=== PATIENT | male | born 1995 | race Caucasian/White ===

== ENCOUNTER 2016-11-29 06:39 | Emergency (ER) | payer SELFPAY ==
[2016-11-29] MEDS ORDERED: NS 0.9% 1000 ML* 1,000 ML IV SCH (07:45)
[2016-11-29] MEDS ORDERED: NS 0.9% 1000 ML* 2,000 ML IV ONE (07:49)
[2016-11-29 08:18] LABS: Hematocrit 43 % (42-52); Hemoglobin 14.3 g/dl (14.0-18.0); Mean Corpuscular HGB Conc 34 g/dl (31-36); Mean Corpuscular Hemoglobin 28 pg (27-31); Mean Corpuscular Volume 84 fL (80-94); Mean Platelet Volume 8 um3 (7.4-10.4); Red Blood Count 5.05 10^6/ul (4.0-5.4); Red Cell Distribution Width 14 % (10.5-15)
[2016-11-29 08:30] LABS: ALT 13 U/L (7-52); AST 23 U/L (13-39); Albumin 3.6 g/dL (3.2-5.2); Alkaline Phosphatase 47 U/L (34-104); Anion Gap 5 mmol/L (2-11); BUN/Creatinine Ratio 17.8 (8-20); Blood Urea Nitrogen 16 mg/dL (6-24); CO2 Carbon Dioxide 27 mmol/L (22-32); Calcium 8.6 mg/dL (8.6-10.3); Chloride 108 mmol/L (101-111); EGFR Non-African American 106.5 (>60); Globulin 2.5 g/dL (2-4); Glucose 104 mg/dL (70-100); Magnesium 2.1 mg/dL (1.9-2.7); Potassium 3.6 mmol/L (3.5-5.0); Sodium 140 mmol/L (133-145); Total Protein 6.1 g/dL (6.4-8.9)
[2016-11-29 08:38] LABS: Acetaminophen < 15 mcg/mL; Alcohol < 10 mg/dL (<10)
[2016-11-29] MEDS ORDERED: Iohexol 300* (CONTRAST) 10 ML SDV IV ONE (08:45)
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
[2016-11-29] MEDS ORDERED: Amoxicillin/Clavulanate TAB* 875 MG PO ONE (10:53)
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
[2016-11-29 11:45] VITALS: BP 117/58
== END 2016-11-29 11:53 | disposition home or self-care (01) ==
LOC: ED 06:39
DX: S00.83XA Contusion of other part of head, initial encounter (principal); S09.90XA Unspecified injury of head, initial encounter; M54.2 Cervicalgia; S20.219A Contusion of unspecified front wall of thorax, initial encounter; J32.9 Chronic sinusitis, unspecified; Y04.0XXA Assault by unarmed brawl or fight, initial encounter; Y92.9 Unspecified place or not applicable; Y00.XXXA Assault by blunt object, initial encounter; Z72.0 Tobacco use
CPT/HCPCS: 36415; 70450; 70486; 71260; 72125; 74177; 80053; 80320; 80329; 83605; 83735; 84484; 85025; 85610; 85730; 86140; 96360; 96374; 99283; A9270-GY; G0480; Q9967

== ENCOUNTER 2016-12-18 04:03 | Inpatient (IN) | payer SELFPAY ==
[2016-12-18] MEDS ORDERED: Ondansetron INJ* 2 MG/ML VIAL IV ONE (05:08)
[2016-12-18] MEDS ORDERED: HYDROmorphone INJ* 1 MG/ML CARPUJECT SYRINGE IV SLOW PU ONE (05:08)
[2016-12-18] MEDS ORDERED: NS 0.9% 1000 ML* 1,000 ML IV ONE (05:08)
[2016-12-18] MEDS ORDERED: LORazepam INJ* 2 MG/ML 1 ML VIAL IV PUSH ONE (05:08)
[2016-12-18 07:01] LABS: Hematocrit 44 % (42-52); Mean Corpuscular HGB Conc 34 g/dl (31-36); Mean Corpuscular Hemoglobin 28 pg (27-31); Mean Corpuscular Volume 83 fL (80-94); Mean Platelet Volume 9 um3 (7.4-10.4); Red Blood Count 5.35 10^6/ul (4.0-5.4); Red Cell Distribution Width 14 % (10.5-15); White Blood Count 11.8 10^3/ul (3.5-10.8)
--- NOTE | 2016-12-18 07:02 | ED ---
Cyndie Girard Rebecca, scribed for Cecile Zhao MD on 12/18/16 at 0455 . Skin Complaint - HPI Summary HPI Summary: Pt is a 21 y/o M who presents to ED c/o erythema of the L breast. Yesterday, the pt reports there was a small "pimple" at the top of the L breast, then upon waking up this morning he began experiencing severe pain and erythema that is spreading to the L axillary region. Pain is currently ranked 8/10 and aggravated by palpation, alleviated by nothing. Additionally c/o anxiety. Denies fever. No PMHx abscess though he notes a cyst in the inguinal region that was removed last year. - History of Current Complaint Chief Complaint: EDRashSkinAbscess Time Seen by Provider: 12/18/16 04:19 Stated Complaint: INFECTION LEFT BREAST AREA Hx Obtained From: Patient Onset/Duration: Started Days Ago - yesterday, Still Present Current Severity: Severe Pain Intensity: 8 Pain Scale Used: 0-10 Numeric Skin Location: Other: - L breast, spreading to the L axilla Character: Pain, Redness Aggravating Symptom(s): Touch Alleviating Symptom(s): Nothing - Allergy/Home Medications Allergies/Adverse Reactions: Allergies Allergy/AdvReac Type Severity Reaction Status Date / Time No Known Allergies Allergy Verified 11/29/16 06:53 PMH/Surg Hx/FS Hx/Imm Hx Endocrine/Hematology History: Denies: Hx Anticoagulant Therapy, Hx Diabetes, Hx Thyroid Disease Cardiovascular History: Denies: Hx Hypertension, Hx Pacemaker/ICD Respiratory History: Reports: Hx Asthma Denies: Hx Chronic Obstructive Pulmonary Disease (COPD) History: Denies: Hx Renal Disease Neurological History: Denies: Hx Dementia, Hx Seizures Psychiatric History: Reports: Hx Anxiety Denies: Hx Substance Abuse - Surgical History Surgery Procedure, Year, and Place: tonsillectomy and adenoidectomy 6 years ago Infectious Disease History: No Infectious Disease History: Denies: Hx Hepatitis, Hx Human Immunodeficiency Virus (HIV), Traveled Outside the [place] in Last 30 Days - Family History Known Family History: Positive: Other - FHx anxiety Negative: Cardiac Disease, Hypertension, Diabetes - Social History Alcohol Use: None Hx Substance Use: Yes Substance Use Type: Reports: Marijuana Hx Tobacco Use: Yes Smoking Status (MU): Heavy Every Day Tobacco Smoker Review of Systems Negative: Fever Positive: Other - Erythema and pain around the L breast Positive: Anxious All Other Systems Reviewed And Are Negative: Yes Physical Exam - Summary Physical Exam Summary: General: Well appearing, no pain distress Skin: Warm, Dry, the left breast is erythematous, fluctuant and has induration Eyes: EOMI, IHSAN ENT: Pharynx normal, TMs normal Neck: Supple, nontender Respiratory: CTA, breath sounds present, no rhonchi, no wheezes, no rales Cardiovascular: RRR, no murmur, no rub, no gallop Abdomen: Soft, nontender, Non-distended, no guarding, no rebound Bowel: Present Musculoskeletal: VI, No edema Neuro: Sensory/motor intact, A&Ox3, CN intact 2-12 Psych: Affect/mood appropriate Triage Information Reviewed: Yes Vital Signs On Initial Exam: Initial Vitals Temp Pulse Resp BP Pulse Ox 98.7 F 105 18 137/81 97 12/18/16 04:08 12/18/16 04:08 12/18/16 04:08 12/18/16 04:08 12/18/16 04:08 Vital Signs Reviewed: Yes Diagnostics - Vital Signs Vital Signs Temp Pulse Resp BP Pulse Ox 12/18/16 04:08 98.7 F 105 18 137/81 97 - Laboratory Lab Statement: Any lab studies that have been ordered have been reviewed, and results considered in the medical decision making process. Course/Dx - Course Course Of Treatment: 21 yo male with breast abscess on the left, he is awaiting labs,ultrasound and and Iand D of the breast which will be done by the am attending. - Diagnoses Provider Diagnoses: Abscess Discharge - Discharge Plan Condition: Stable Disposition: OTHER Discharge Disposition Comment: Pt will be signed out, pending dispo, awaiting drainage. Referrals: Pawan Cole MD [Primary Care Provider] - The documentation as recorded by the Cyndie york Rebecca accurately reflects the service I personally performed and the decisions made by me, Cecile Zhao MD.
[2016-12-18 07:13] LABS: Albumin 4.1 g/dL (3.2-5.2); BUN/Creatinine Ratio 14.3 (8-20); C Reactive Protein 80.09 mg/L (< 5.00); Calcium 9.1 mg/dL (8.6-10.3); EGFR African American 124.2 (>60); EGFR Non-African American 96.6 (>60); Globulin 3.1 g/dL (2-4); Total Bilirubin 0.4 mg/dL (0.2-1.0); Total Protein 7.2 g/dL (6.4-8.9)
[2016-12-18 07:26] LABS: Comments Flag Yes
[2016-12-18] MEDS ORDERED: fentaNYL* 50 MCG/ML 2 ML VIAL (100 MCG VIAL) IV SLOW PU ONE (07:47)
[2016-12-18] MEDS ORDERED: fentaNYL* 50 MCG/ML 2 ML VIAL (100 MCG VIAL) ONE (07:48)
--- NOTE | 2016-12-18 08:31 | RAD ---
INDICATION: Left breast abscess COMPARISON: None TECHNIQUE: Radial and antiradial scans of the breast were performed using grayscale and color Doppler imaging. FINDINGS: In the retroareolar left breast there is significant edematous change with a localized hypoechoic collection which is likely an organizing abscess. This area measures approximately 2.4 x 1.3 cm and is associated with peripheral hyperemic response. Suggest clinical evaluation and management and follow-up ultrasonography in 1 month to document resolution of findings. IMPRESSION: SUSPECT DEVELOPING RETROAREOLAR LEFT BREAST ABSCESS. RECOMMEND FOLLOW-UP IMAGING TO DOCUMENT RESOLUTION. ASSESSMENT: ACR BIRADS Category 3: Probably Benign
[2016-12-18] MEDS ORDERED: Bupivacaine 0.5% SDV PF* 30 ML VIAL ONE (09:27)
[2016-12-18] MEDS ORDERED: Lidocaine 1% INJ* 10 MG/ML 30 ML SDV ONE (09:27)
[2016-12-18] MEDS ORDERED: ceFAZolin 2 GM PREMIX (*) 50 ML IVPB ONE (09:41)
--- NOTE | 2016-12-18 10:22 | HP ---
CC: Dr. Abraham, [facility] ADMISSION HISTORY AND PHYSICAL: DATE OF ADMISSION: 12/18/16 This patient was evaluated in the [facility] Emergency Room on Wednesday , 12/18/16. ATTENDING PHYSICIAN: Austin Abraham MD* (dictated by Megan Perez NP). CHIEF COMPLAINT: Left breast abscess. HISTORY OF PRESENT ILLNESS: The patient is a 21-year-old male who presented to the emergency department at 3 o'clock this morning, complaining of erythema of the left breast. Yesterday, the patient reports, there was a small "pimple" at the top of the left breast and then upon awakening this morning, he began experiencing severe pain and spreading erythema. The pain is currently ranked at 8/10 and aggravated by palpation. He denies any fever or chills. He denies any previous breast abscesses, though he notes he had removal of a cyst in the inguinal region within the past year. Ultrasound of the left breast revealed a developing left breast abscess in the retroareolar region, measuring 2.4 x 1.3 cm. The patient's white blood cell count is 11.8 and he is afebrile. PAST MEDICAL HISTORY: Generally healthy. No acute or chronic conditions. PAST SURGICAL HISTORY: Tonsillectomy and adenoidectomy 6 years ago and excision of groin cyst in 2016. MEDICATIONS: None currently. ALLERGIES: No known drug allergies. FAMILY HISTORY: Negative for cardiac disease or diabetes or bleeding tendencies or clotting disorders or anesthesia complications. SOCIAL HISTORY: He is a smoker. He denies the use of substances. His significant other is accompanying him in the emergency room. REVIEW OF SYSTEMS: Denies fever or chills or excessive fatigue. Endocrine: Denies diabetes or thyroid disease. Cardiovascular: Denies hypertension or anginal chest pain or palpitations. Respiratory: Reports smoking. No current dyspnea. Gastrointestinal: Denies nausea, vomiting, diarrhea, or constipation. Genitourinary: Denies history of renal disease. Denies dysuria. Neurologic: Denies history of seizures. Psychiatric: Denies substance abuse and reports history of anxiety. PHYSICAL EXAMINATION GENERAL SURVEY: The patient is a 21-year-old male, well developed, well nourished, in no acute distress. VITAL SIGNS: Temperature 98.7, blood pressure 106/52, pulse 80s and regular, respiratory rate 18, pulse oximetry 97%. SKIN: Warm, dry, and intact, except for left breast, which has an area of erythema, approximately 10 cm wide and there is a small area that is eroding through the skin. The left breast is exquisitely tender to palpation. No axillary lymphadenopathy. HEENT: Benign. NECK: Supple. No cervical lymphadenopathy. LUNGS: Breath sounds bilaterally clear and equal. HEART: Regular rate and rhythm. No murmurs or rubs appreciated. ABDOMEN: Soft and nondistended. No obvious masses. No groin masses. GENITALIA/RECTAL: Deferred. EXTREMITIES: Warm without edema or skin ulceration. NEUROLOGIC: Alert when aroused, currently is medicated with analgesic and is sleepy. IMPRESSION: Left breast abscess. PLAN: As discussed with Dr. Abraham, the patient will be taken to the operating room today for incision and drainage of left breast abscess. He will have intravenous fluids, intravenous antibiotics, and pain management, and further planning per Dr. Abraham. TIME SPENT: Sixty minutes, with greater than 50% in [id number] history taking and coordination of care. PRADIP PEREZ NP [id number]/[facility] #: [id number] ELLA
[2016-12-18] MEDS ORDERED: Propofol* 10 MG/ML 20 ML BTL IV PUSH ONE (10:23)
[2016-12-18] MEDS ORDERED: Metoclopramide IV* 5 MG/ML 2 ML VIAL ONE (10:23)
[2016-12-18] MEDS ORDERED: Ketorolac INJ* 30 MG/ML 1 ML VIAL IV PRN (10:30)
[2016-12-18] MEDS ORDERED: HYDROmorphone INJ* 1 MG/ML CARPUJECT SYRINGE IV PRN (10:30)
[2016-12-18] MEDS ORDERED: DiMENhydriNATE IV* 50 MG/ML VIAL IV PUSH PRN (10:30)
[2016-12-18] MEDS ORDERED: Ketorolac INJ* 30 MG/ML 1 ML VIAL ONE (10:45)
[2016-12-18] MEDS ORDERED: oxyCODONE/Acetamin 5/325 MG* TAB PO PRN (10:47)
[2016-12-18] MEDS ORDERED: Ondansetron INJ* 2 MG/ML VIAL IV PRN (10:47)
--- NOTE | 2016-12-18 10:55 | SURGPN ---
Brief Operative Note - Surgery Procedures: Procedures OPERATIVE REPORT PRE-OP: Left Breast abscess POST-OP: Same PROCEDURE: Incision and drainage of left breast abscess SURGEON: MD Jraad ANESTHESIA: General with Local Dr. Nye ASST: none IVF: min EBL:min SPECIMEN: Fluid for gram stain and culture DRAIN: 1/2" Nu-gauze packing WOUND CLASS: 4 COMPLICATIONS: none TO PACU
[2016-12-18] MEDS ORDERED: HYDROmorphone INJ* 1 MG/ML CARPUJECT SYRINGE ONE (11:00)
[2016-12-18] MEDS: NS 0.9% 1000 ML* 1,000 ML IV SCH ×2 (13:30→22:39)
[2016-12-18] MEDS ORDERED: ZOSYN 3.375 GM x ONE DOSE over 30 miuntes IVPB ×2 (13:30)
[2016-12-18] MEDS: oxyCODONE/Acetamin 5/325 MG* TAB PO PRN ×3 (13:55→22:22)
[2016-12-18] MEDS ORDERED: Vancomycin(*) 1,000 MG in NS 0.9% 250 ML* 250 ML IVPB ONE (14:00)
[2016-12-18] MEDS ORDERED: Vancomycin per Pharmacy* NOTE FOLLOW UP PRN (14:02)
[2016-12-18] MEDS ORDERED: Mouth Piece, Nicotine* 1 EACH CARTRIDGE ONE (14:09)
[2016-12-18] MEDS: Nicotine Inhaler* 10 MG AMP INH PRN ×3 (14:11→21:40)
[2016-12-18] MEDS ORDERED: Mouth Piece, Nicotine* 1 EACH CARTRIDGE INH ONE (15:00)
[2016-12-18] MEDS: Nicotine PATCH 21 MG/24 HR* PATCH TRANSDERM SCH (16:07)
--- NOTE | 2016-12-18 18:27 | ED ---
IEriberto Angela, scribed for Ruben Rodriguez MD on 12/18/16 at 0720 . Progress - Progress Note Progress Note: Pt is a 21 y/o M who presents to ED c/o erythema of the L breast. Yesterday, the pt reports there was a small "pimple" at the top of the L breast, then upon waking up this morning he began experiencing severe pain and erythema that is spreading to the L axillary region. This pt was signed out from Dr. Zhao, pending disposition, awaiting breast US. Pt will be admitted to [facility] in stable condition with a diagnosis of abscess. - Results/Orders Results/Orders: Left Breast US IMPRESSION: Suspect developing retroareolar left breast abscess. Recommend follow-up imaging to document resolution. Assessment: ACR BIRADS category 3: probably benign ED physician has reviewed this radiology report and agrees. Re-Evaluation - Re-Evaluation First Eval Re-Evaluation Time: 07:50 Comment: On examination, left breast is warm to palpation. There is tenderness and erythema on the left breast. Course/Dx - Course Course Of Treatment: Pt is a 21 y/o M who presents to ED c/o erythema of the L breast. Yesterday, the pt reports there was a small "pimple" at the top of the L breast, then upon waking up this morning he began experiencing severe pain and erythema that is spreading to the L axillary region. This pt was signed out from Dr. Zhao, pending disposition, awaiting breast US. US reveals suspect developing retroareolar left breast abscess. Recommend follow-up imaging to document resolution. I discussed the case with Dr. Cruz, who accepted the pt to his services for I&D of abscess in the OR. Pt is hemodynamically stable, alert and oriented x3. - Diagnoses Provider Diagnoses: Abscess - Provider Notifications Discussed Care Of Patient With: Georges Dial Time Discussed With Above Provider: 08:27 Instructed by Provider To: Other - I discussed the pt's case with Dr. Dial. He will come see the pt in the ED. I spoke to Dr. Cruz, who accepted the pt for admission for I&D in the OR. The documentation as recorded by the Eriberto york Angela accurately reflects the service I personally performed and the decisions made by me, Ruben Rodriguez MD.
[2016-12-18] MEDS: clonazePAM TAB(*) 1 MG PO PRN (19:21)
[2016-12-18] MEDS: Ketorolac INJ* 30 MG/ML 1 ML VIAL IV PUSH PRN (19:24)
[2016-12-18] MEDS: HYDROmorphone INJ* 1 MG/ML CARPUJECT SYRINGE IV SLOW PU PRN ×3 (19:45→22:49)
[2016-12-18] MEDS ORDERED: Vancomycin(*) 1,000 MG in NS 0.9% 250 ML* 250 ML IVPB SCH (21:00)
[2016-12-18] MEDS ORDERED: Nicotine Patch Removal NOTE PATCH OFF SCH (21:00)
--- NOTE | 2016-12-18 23:58 | OP ---
DATE OF OPERATION: 12/18/16 - ROOM #337 DATE OF : 89 SURGEON: Austin Abraham MD ENVIRONMENTAL HEALTH TECHNICIAN: None. ANESTHESIOLOGIST: Dr. Nye. ANESTHESIA: General with local. PRE-OP DIAGNOSIS: Left breast abscess. POST-OP DIAGNOSIS: Left breast abscess. OPERATIVE PROCEDURE: Incision and drainage of left breast abscess. ESTIMATED BLOOD LOSS: Minimal. IV FLUIDS: Minimal. SPECIMENS: Fluid for gram stain and culture. WOUND CLASSIFICATION: IV. DRAIN: One-half inch Nu Gauze packing. COMPLICATIONS: None. FINDINGS: Patient had a spontaneously draining left breast abscess with significant amount of induration, edema and cellulitis. The abscess cavity was opened. The cultures were obtained and all tissue appeared to be viable and any of the loculations were broken up. The wound was packed and covered with dry gauze. BRIEF HISTORY: Mr. Pawan Chávez is a 21-year-old gentleman presenting to the emergency room with 24 hours of swelling, tenderness, and redness in the left breast. He said he had a small pimple above the areola yesterday and has suddenly developed significant amount of pain and discomfort. It is noted to have an area about 10 x 10 cm of cellulitis with induration and swelling of the left breast. Also noted to be some enlarged tender lymph nodes in the left axilla, not clinically fluctuant or abscessed. There was an open area inferior and slightly lateral to the areola with some seropurulent drainage noted. Ultrasound does show what appeared to be a retroareolar cavity consistent or concerning for an early abscess. Surgical consultation has been obtained and after being seen and examined, he is to be taken to the operating for an incision and drainage of what appears to be a left breast abscess. He is non-diabetic, but he is a smoker. He denies recent trauma or manipulation of the breast. The procedure was discussed with the patient, the risks, but not limited to bleeding, infection, abscess formation, discomfort, hospital stay, re-operation depending on clinical course, and prolonged wound care and healing were all explained. DESCRIPTION OF PROCEDURE: Written informed consent was obtained, the left breast was marked with indelible ink and preoperative antibiotics were administered. The patient was taken to the operating room and placed in the supine position. Sequential decompression devices and warming blanket were applied. Anesthesia was administered. The left breast and chest as well the axilla were prepped and draped in usual sterile fashion. Timeout verification was completed. Initially, 0.5% plain Marcaine was infiltrated extensively in the left breast. A elliptical incision of skin bordering the inferior portion of the left areola to include the open area was excised. We then entered a rather large cavity went in behind the nipple as well as several pockets extending deeper down towards the chest wall and medial. All of these were broken up. There was some turbid seropurulent fluid drained, but no general abscess, no large abscess , which I had sized or entered. After using a #18 gauge needle to aspirate several areas of induration, there was no evidence of pus elsewhere in the breast. I irrigated extensively and cultures were taken prior to irrigation. Attention was turned to the axilla. There appeared to be several enlarged lymph nodes, did not appear to be fluctuant, slightly red, but I suspect that these were reactive to the process in the breast and I did not perform aspiration or attempt to open these areas. The abscess cavity was packed with one half-inch Nu Gauze covered with a dry sterile dressing. The patient tolerated the procedure well, was taken to the recovery room in stable condition. [id number]/[facility] #: [id number] ELLA
[2016-12-19] MEDS: Nicotine Inhaler* 10 MG AMP INH PRN ×2 (00:27→11:41)
[2016-12-19] MEDS: Ketorolac INJ* 30 MG/ML 1 ML VIAL IV PUSH PRN ×2 (01:50→10:51)
[2016-12-19] MEDS: HYDROmorphone INJ* 1 MG/ML CARPUJECT SYRINGE IV SLOW PU PRN ×10 (02:05→18:23)
[2016-12-19] MEDS: oxyCODONE/Acetamin 5/325 MG* TAB PO PRN ×2 (02:48→07:33)
[2016-12-19] MEDS: clonazePAM TAB(*) 1 MG PO PRN (08:38)
--- NOTE | 2016-12-19 08:52 | PN ---
Progress Note - Progress Note Date of Service: 12/19/16 SOAP: Subjective: c/o severe pain and also swelling in L axilla which is tender. "I have another abscess." He also requests more Klonapin for his anxiety. Objective: Vital Signs Temp 98.2 F 12/19/16 00:06 Pulse 80 12/19/16 00:06 Resp 20 12/19/16 08:38 BP 128/62 12/19/16 00:06 Pulse Ox 96 12/19/16 08:23 Sleeping, arousable. L chest wound clean; portion of packing removed then pt refused. Erythema on breast with tenderness. Not fluctuant. L axilla has 2 tender subcut nodules; non-fluctuant. Intake & Output 12/18/16 12/19/16 12/19/16 18:59 06:59 18:59 Intake Total 3328 3420 Output Total 380 Balance 3328 3040 Weight 197 lb Intake: IV Fluids 2278 950 LR 200 NS 50ML, Cefazolin 2G 50 IVPB 370 110 Oral 680 2360 Output: Urine 380 Micro reviewed: +MSSA in blood and wound. Assessment: POD#1 s/p I&D of L breast infxn with bacteremia. He does not appear septic. Plan: Will continue abx. Have asked Hospitalist for help in management of infxn; anxiety meds.
[2016-12-19] MEDS: Nicotine PATCH 21 MG/24 HR* PATCH TRANSDERM SCH ×2 (10:25→17:41)
[2016-12-19] MEDS: oxyCODONE TAB* 5 MG TAB PO PRN ×2 (11:40→16:16)
[2016-12-19] MEDS ORDERED: clonazePAM TAB(*) 1 MG PO PRN (12:33)
[2016-12-19] MEDS ORDERED: ceFAZolin 2 GM PREMIX (*) 100 ML IVPB SCH (13:00)
[2016-12-19] MEDS ORDERED: Vancomycin Trough Check NOTE FOLLOW UP ONE (15:00)
--- NOTE | 2016-12-19 15:01 | RAD ---
INDICATION: Chest wall abscess COMPARISON: Left chest wall sonogram December 18, 2016 TECHNIQUE: PA and lateral dual-energy views were obtained. FINDINGS: Bones/Soft Tissues: There are no acute bony findings. The lateral view shows soft tissue edema in the chest wall consistent with earlier ultrasound findings Cardiomediastinal: The cardiomediastinal silhouette is normal. Lungs: There are no infiltrates. Pleura: There are no pleural effusions. Other: None IMPRESSION: LUNGS CLEAR. SOFT TISSUE ABNORMALITIES IN THIS PATIENT WITH KNOWN CHEST WALL ABSCESS..
--- NOTE | 2016-12-19 15:02 | CONS ---
CC: Dr. Dial; Dr. Abraham; True. * CONSULTATION REPORT: DATE OF CONSULT: 12/19/16 REQUESTING PHYSICIAN FOR CONSULT: Dr. Dial MY ATTENDING PHYSICIAN WHILE IN THE HOSPITAL: Sushila Forrest DO. (Report dictated by Jorgito Jenkins NP). REASON FOR MEDICAL CONSULTATION: Evaluation of breast abscess and medical management and bacteremia. HISTORY OF PRESENT ILLNESS: I refer to the H and P dictated by Dr. Toya Perez earlier on the for further details. In short, Mr. Chávez is a 21-year- old male patient, who came into the ER with complaints of left breast abscess. He says that he was 36 hours prior was in half-way. He developed a pimple over his left breast that got much worse. He noticed that it got much bigger when woke up the following morning yesterday and there was spreading erythema up into his arm. He said the pain was an 8/10. He denied any fevers or chills. He says that he did have cyst in his inguinal area in the past year. The ultrasound of the breast revealed a large left abscess. He denied having any chest pain, no cough, no shortness of breath. He was taken to the OR by Dr. Abraham. An I and D was performed and blood cultures were sent. Today it was noted that he appeared to have staph in his blood. In addition to this, there was staph growing out of the abscess. Because of this, we were asked to evaluate in consult. He says he was in a significant amount of pain right now. He says he feels very anxious. He denies any chest pain, denies having any shortness of breath and he denies any nausea and denies having any vomiting, but because of his medical complexity, we are asked to evaluate and consult. PAST MEDICAL HISTORY: Significant for anxiety. PAST SURGICAL HISTORY: 1. He has had a tonsil and adenoidectomy. 2. He has had an excision of the cyst of his right groin. HOME MEDICATIONS: Denied. ALLERGIES TO MEDICATIONS: Include no known drug allergies. FAMILY HISTORY: Mother had a history of cancer. Father had a history of diabetes and heart disease. SOCIAL HISTORY: He is a pack a day smoker for about 10 years. He does smoke marijuana daily. He denies alcohol abuse and he specifically denied IV drug use , but does state that he has used cocaine in the past, but he says he has not done injectables. REVIEW OF SYSTEMS: There is no documented fever. He denied having any significant weight change. There was no double vision. He denies having any ear discharge. No rhinorrhea. No sore throat. No thyroid enlargement. Denies having any chest pain or shortness of breath. No abdominal pain. No nausea, no vomiting, no dysuria, no frequency. There was no seizure. No loss of consciousness. No pruritus and no skin ulceration. Review of 14 systems completed, all others negative. PHYSICAL EXAM: Revealed vital signs, blood pressure 128/62, pulse 80, respirations 18, O2 sat 99%, temperature 98.2. General: At this time, Mr. Chávez is a 21- year-old male patient. He appears to be again anxious. He is well nourished, well developed. HEENT: Head is atraumatic. Eyes: EOMs are intact. Sclerae was anicteric, not pale. Neck: Supple. Throat: Oral mucosa appears to be moist. No oropharyngeal erythema. Heart: Sounds S1 and S2. Regular rate and rhythm. No murmurs, rubs or gallops. Lungs: Clear to auscultation. No wheezes, rales or rhonchi. Abdomen: Soft, flat. Nontender. Bowel sounds present. Extremities: Pulses were 2+ throughout. He is able to move all 4 extremities with 5/5 strength. Neurologic: He is awake, alert, oriented x3, no gross focal deficits. Skin: He had an area of erythema, it was still about 10-cm wide noted to be starting from the left breast, going up into the left axilla. He does have tenderness in the left axilla. Appears to have a small lymph nodes there. In addition to this, he has now an incision noticed on the left nipple, right to the 3 o'clock position on the left nipple that is packed and is draining. Otherwise, skin is intact. DIAGNOSTIC STUDIES/LAB DATA: Revealed a WBC of 11.8, RBC of 5.35, hemoglobin 15.0, hematocrit 44, platelet count of 215. His sodium of 137, potassium was 4.0, chloride of 102, bicarb 26, BUN 14, creatinine of 0.98, glucose 87, lactate 0.4, total bili 0.4, AST 25, ALT 23. His CRP was 80. Serology was negative for HIV. Old medical records were reviewed. Again, he did have a breast ultrasound done on the , which revealed suspect developing retroareolar left breast abscess. Recommend followup and imaging. Old medical records reviewed. ASSESSMENT AND PLAN: Mr. Chávez is a 21-year-old male patient coming into the hospital yesterday with complaints of left breast swelling starting up from a pimple that got much worse in 36 hours. He was initially admitted under surgical services, brought to the OR. This was I and D'ed and drained. Unfortunately today, it was noted that he is growing staph in the blood in addition to the staph out of the wound. We were asked to evaluate in consult. Recommendation at this point are: 1. Left breast abscess with bacteremia. He does not appear to be septic at this point. I did touch base with Dr. Biswas on the case. The plan would be to await further cultures. If all 4 cultures come back positive for staph, obviously we need to get a TINY. He did recommend a chest x-ray to make sure there was not any underlying empyema that may have again eroded into the chest wall. Plan will be to change him over to Ancef as his PCR is negative for MRSA. So we will give him 2 g every 8 hours and we will again continue IV antibiotics. Therefore, duration will depend on what happens with the blood cultures plus right now we will continue him on IV antibiotics. If again, obviously if it is positive for all 4 bottles and this endocarditis, he would probably need to be on 4 to 6 weeks of IV antibiotics and obviously again if it is just localized to the chest wall, he will probably need minimally 2 weeks of antibiotics, but at this point, again we will await further information. 2. Anxiety. I have started him on BuSpar. I placed a psychiatric consultation on the patient as he does appear to be fairly anxious. We have increased his benzos to t.i.d. and we will continue to follow. 3. DVT prophylaxis. I would recommend SCDs on the patient minimally. 4. Code status. Full code. 5. Fluids, nutrition. He can have a regular diet. 6. Surgical incision. At this point, I would again defer management of this to the surgical services and their recommendations. TIME SPENT: Time spent on the consult was 60 minutes, greater than half the time was spent face to face with the patient obtaining my history and physical, the other half of the time was spent on going over the plan of care with the patient and implementing the place of care. I did discuss the plan of care with my attending Dr. Forrest, she is in agreement. JORGITO JENKINS, LENS MOLD SETTER [id number]/[facility] #: [id number] ELLA
[2016-12-19 18:22] VITALS: BP 137/77
[2016-12-19] MEDS ORDERED: busPIRone TAB* 15 MG PO SCH (21:00)
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
== END 2016-12-19 18:40 | disposition home or self-care (01) | DRG 601 ==
LOC: ED 04:03 → OR 09:19 → SSU 12:47 → OBSVTOIN 12-19 17:44
PROVIDERS: ADMIT Surgery; ATTEND Hospitalist
PROC: 0H9U0ZZ Drainage of Left Breast, Open Approach (ICD-10-PCS; principal; 2016-12-18 10:00)
DX: N61.1 Abscess of the breast and nipple (principal); A49.01 Methicillin susceptible Staphylococcus aureus infection, unspecified site; F41.9 Anxiety disorder, unspecified; F17.210 Nicotine dependence, cigarettes, uncomplicated; F12.10 Cannabis abuse, uncomplicated; Z82.49 Family history of ischemic heart disease and other diseases of the circulatory system; Z80.9 Family history of malignant neoplasm, unspecified; Z83.3 Family history of diabetes mellitus
CPT/HCPCS: 36415; 71020; 80053; 83605; 85025; 86140; 86703; 87040; 87070; 87073; 87077; 87150; 87186; 87205; 87640; 87641; 94760; 99406; A9270-GY; G0378; J0690; J1170; J1885; J2001; J2060; J2405; J2543; J2704; J2765; J3010; J3370

== ENCOUNTER 2016-12-19 23:45 | Emergency (ER) | payer SELFPAY ==
[2016-12-19 23:54] VITALS: BP 0/0
== END 2016-12-19 23:58 | disposition left against medical advice (07) ==
LOC: ED 23:45
DX: N64.4 Mastodynia (principal); Z53.21 Procedure and treatment not carried out due to patient leaving prior to being seen by health care provider

== ENCOUNTER 2016-12-20 01:32 | Inpatient (IN) | payer SELFPAY ==
[2016-12-20] MEDS ORDERED: NS 0.9% 1000 ML* 1,000 ML IV ONE (02:13)
[2016-12-20] MEDS ORDERED: ceFAZolin 2 GM PREMIX (*) 100 ML IVPB ONE (04:57)
[2016-12-20] MEDS ORDERED: clonazePAM TAB(*) 1 MG PO ONE (04:59)
[2016-12-20 05:03] LABS: Hematocrit 38 % (42-52); Hemoglobin 12.9 g/dl (14.0-18.0); Mean Corpuscular HGB Conc 34 g/dl (31-36); Mean Corpuscular Hemoglobin 28 pg (27-31); Mean Corpuscular Volume 84 fL (80-94); Mean Platelet Volume 8 um3 (7.4-10.4); Red Blood Count 4.54 10^6/ul (4.0-5.4); Red Cell Distribution Width 14 % (10.5-15); White Blood Count 12.4 10^3/ul (3.5-10.8)
[2016-12-20 05:18] LABS: Albumin 3.4 g/dL (3.2-5.2); BUN/Creatinine Ratio 17.4 (8-20); C Reactive Protein 78.33 mg/L (< 5.00); Calcium 8.6 mg/dL (8.6-10.3); EGFR African American 186.1 (>60); EGFR Non-African American 144.7 (>60); Globulin 2.9 g/dL (2-4); Magnesium 1.8 mg/dL (1.9-2.7); Potassium 3.9 mmol/L (3.5-5.0); Total Bilirubin 0.2 mg/dL (0.2-1.0); Total Protein 6.3 g/dL (6.4-8.9)
[2016-12-20] MEDS ORDERED: clonazePAM TAB(*) 0.5 MG PO ONE (05:30)
[2016-12-20] MEDS ORDERED: oxyCODONE TAB* 5 MG TAB PO ONE (05:39)
[2016-12-20] MEDS ORDERED: oxyCODONE TAB* 5 MG TAB PO PRN (08:14)
--- NOTE | 2016-12-20 10:25 | ED ---
Barbara Girard Thomas, scribed for Nano Shafer MD on 12/20/16 at 0616 . Skin Complaint - HPI Summary HPI Summary: The patient is a 21 y/o M who returns to [facility] c/o L breast pain and L axilla pain. The pt has an abscess to his left breast that had an I&D performed by Dr. Abraham two days ago that has packing in place. The pt also has an abscess on his L axilla that is not drained. The pain with both abscesses is worsened upon touch. The pain is constant. He rates the pain 12/29 He was an inpatient at [facility] yesterday for IV Abx but he left AMA d/t concerns as outlined by Jorgitomisa Jenkins AUDIO VIDEO TECHNICIAN in the patients discharge summary. Mr. Jenkins is concerned for endocarditis as the patient has positive blood staph. He denies any other complaints at this time. He states he returned because of the pain and wants continued treatment. He returns without any bandage in place over his left breast abscess and it is open and draining. - History of Current Complaint Chief Complaint: EDRashSkinAbscess Time Seen by Provider: 12/20/16 01:53 Stated Complaint: POST SURGERY LEFT BREAST PAIN Hx Obtained From: Patient, Medical Records Onset/Duration: Still Present, Worse Since - pain is worse since leaving AMA Skin Exposure Onset/Duration: Days Ago Timing: Constant Onset Severity: Severe Current Severity: Severe Pain Intensity: 10 Pain Scale Used: 0-10 Numeric Skin Location: Other: - L breast abscess and L axilla abscess with pain Character: Pain, Redness, Raised, Painful Aggravating Symptom(s): Touch Alleviating Symptom(s): Nothing, Treatment 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: - inpatient I&D, antibiotics IV and pain meds Associated Signs & Symptoms: Drainage - from left breast abscess that was I&D'd , Tenderness, Red Streaks Related History: Other: - substance abuse - Allergy/Home Medications Allergies/Adverse Reactions: Allergies Allergy/AdvReac Type Severity Reaction Status Date / Time Fish Allergy Allergy Unknown Verified 12/20/16 23:11 Reaction Details PMH/Surg Hx/FS Hx/Imm Hx Previously Healthy: No Endocrine/Hematology History: Denies: Hx Anticoagulant Therapy, Hx Diabetes, Hx Thyroid Disease Cardiovascular History: Denies: Hx Hypertension, Hx Pacemaker/ICD Respiratory History: Reports: Hx Asthma Denies: Hx Chronic Obstructive Pulmonary Disease (COPD) History: Denies: Hx Renal Disease Sensory History: Denies: Hx Contacts or Glasses, Hx Hearing Aid Opthamlomology History: Denies: Hx Contacts or Glasses Neurological History: Denies: Hx Dementia, Hx Seizures Psychiatric History: Reports: Hx Anxiety, Hx Substance Abuse - ETOH - Surgical History Surgery Procedure, Year, and Place: tonsillectomy and adenoidectomy 6 years ago Hx Anesthesia Reactions: No - Immunization History Date of Tetanus Vaccine: Pt is unsure of status Infectious Disease History: No Infectious Disease History: Denies: Hx Clostridium Difficile, Hx Hepatitis, Hx Human Immunodeficiency Virus (HIV), Traveled Outside the [place] in Last 30 Days - Family History Known Family History: Positive: Other - FHx anxiety Negative: Cardiac Disease, Hypertension, Diabetes - Social History Alcohol Use: Weekly Hx Substance Use: Yes Substance Use Type: Reports: Marijuana Hx Tobacco Use: Yes Smoking Status (MU): Heavy Every Day Tobacco Smoker Type: Cigarettes Review of Systems Negative: Fever Cardiovascular: Negative Respiratory: Negative Positive: Other - Drained abscess to left breast, abscess to left axilla Neurological: Negative Positive: Anxious All Other Systems Reviewed And Are Negative: Yes Physical Exam Triage Information Reviewed: Yes Vital Signs On Initial Exam: Initial Vitals Temp Pulse Resp BP Pulse Ox 98.3 F 94 18 129/74 99 12/20/16 01:36 12/20/16 01:36 12/20/16 01:36 12/20/16 01:36 12/20/16 01:36 Vital Signs Reviewed: Yes Appearance: Positive: Well-Appearing, Well-Nourished, Pain Distress Skin: Positive: Warm, Skin Color Reflects Adequate Perfusion, Other - He has an abscess with packing on his left breast. It is open and draining yellow fluid. Surrounding erythema and induration measures 17cm. He also has an abscess to left axilla with surrounding erythema 5cm that is not pointing, is not draining. No visible IV track fall Head/Face: Positive: Normal Head/Face Inspection Eyes: Positive: Conjunctiva Clear ENT: Positive: Normal ENT inspection Neck: Positive: Supple, Nontender, No Lymphadenopathy Respiratory/Lung Sounds: Positive: Clear to Auscultation, Breath Sounds Present , Other - No respiratory distress Cardiovascular: Positive: RRR, Pulses are Symmetrical in both Upper and Lower Extremities, Other - Brisk cap refill. Negative: Murmur Abdomen Description: Positive: Nontender, Soft Bowel Sounds: Positive: Present Musculoskeletal: Positive: Strength/ROM Intact Neurological: Positive: Sensory/Motor Intact, Alert, Oriented to Person Place, Time, Facial Symmetry, Speech Normal Psychiatric: Positive: Normal - [place] Coma Scale Coma Scale Total: 15 Diagnostics - Vital Signs Vital Signs Temp Pulse Resp BP Pulse Ox 12/20/16 01:36 98.3 F 94 18 129/74 99 - Laboratory Lab Results: Lab Results 12/20/16 12/20/16 12/20/16 Range/Units 04:45 04:45 04:45 WBC 12.4 H (3.5-10.8) 10^3/ul RBC 4.54 (4.0-5.4) 10^6/ul Hgb 12.9 L (14.0-18.0) g/dl Hct 38 L (42-52) % MCV 84 (80-94) fL MCH 28 (27-31) pg MCHC 34 (31-36) g/dl RDW 14 (10.5-15) % Plt Count 189 (150-450) 10^3/ul MPV 8 (7.4-10.4) um3 Neut % (Auto) 69.9 (38-83) % Lymph % (Auto) 15.6 L (25-47) % [place] % (Auto) 9.7 H (1-9) % Eos % (Auto) 4.1 (0-6) % Baso % (Auto) 0.7 (0-2) % Absolute Neuts (auto) 8.7 H (1.5-7.7) 10^3/ul Absolute Lymphs (auto) 1.9 (1.0-4.8) 10^3/ul Absolute Monos (auto) 1.2 H (0-0.8) 10^3/ul Absolute Eos (auto) 0.5 (0-0.6) 10^3/ul Absolute Basos (auto) 0.1 (0-0.2) 10^3/ul Absolute Nucleated RBC 0 10^3/ul Nucleated RBC % 0 INR (Anticoag Therapy) 0.98 (0.89-1.11) Sodium 138 (133-145) mmol/L Potassium 3.9 (3.5-5.0) mmol/L Chloride 106 (101-111) mmol/L Carbon Dioxide 27 (22-32) mmol/L Anion Gap 5 (2-11) mmol/L BUN 12 (6-24) mg/dL Creatinine 0.69 (0.67-1.17) mg/dL Est GFR ( Amer) 186.1 (>60) Est GFR (Non-Af Amer) 144.7 (>60) BUN/Creatinine Ratio 17.4 (8-20) Glucose 89 (70-100) mg/dL Lactic Acid (0.5-2.0) mmol/L Calcium 8.6 (8.6-10.3) mg/dL Magnesium 1.8 L (1.9-2.7) mg/dL Total Bilirubin 0.20 (0.2-1.0) mg/dL AST 18 (13-39) U/L ALT 16 (7-52) U/L Alkaline Phosphatase 41 (34-104) U/L C-Reactive Protein 78.33 H (< 5.00) mg/L Total Protein 6.3 L (6.4-8.9) g/dL Albumin 3.4 (3.2-5.2) g/dL Globulin 2.9 (2-4) g/dL Albumin/Globulin Ratio 1.2 (1-3) 12/20/16 Range/Units 04:45 WBC (3.5-10.8) 10^3/ul RBC (4.0-5.4) 10^6/ul Hgb (14.0-18.0) g/dl Hct (42-52) % MCV (80-94) fL MCH (27-31) pg MCHC (31-36) g/dl RDW (10.5-15) % Plt Count (150-450) 10^3/ul MPV (7.4-10.4) um3 Neut % (Auto) (38-83) % Lymph % (Auto) (25-47) % [place] % (Auto) (1-9) % Eos % (Auto) (0-6) % Baso % (Auto) (0-2) % Absolute Neuts (auto) (1.5-7.7) 10^3/ul Absolute Lymphs (auto) (1.0-4.8) 10^3/ul Absolute Monos (auto) (0-0.8) 10^3/ul Absolute Eos (auto) (0-0.6) 10^3/ul Absolute Basos (auto) (0-0.2) 10^3/ul Absolute Nucleated RBC 10^3/ul Nucleated RBC % INR (Anticoag Therapy) (0.89-1.11) Sodium (133-145) mmol/L Potassium (3.5-5.0) mmol/L Chloride (101-111) mmol/L Carbon Dioxide (22-32) mmol/L Anion Gap (2-11) mmol/L BUN (6-24) mg/dL Creatinine (0.67-1.17) mg/dL Est GFR ( Amer) (>60) Est GFR (Non-Af Amer) (>60) BUN/Creatinine Ratio (8-20) Glucose (70-100) mg/dL Lactic Acid 0.3 L (0.5-2.0) mmol/L Calcium (8.6-10.3) mg/dL Magnesium (1.9-2.7) mg/dL Total Bilirubin (0.2-1.0) mg/dL AST (13-39) U/L ALT (7-52) U/L Alkaline Phosphatase (34-104) U/L C-Reactive Protein (< 5.00) mg/L Total Protein (6.4-8.9) g/dL Albumin (3.2-5.2) g/dL Globulin (2-4) g/dL Albumin/Globulin Ratio (1-3) Result Diagrams: 12/20/16 04:45 12/20/16 04:45 Lab Statement: Any lab studies that have been ordered have been reviewed, and results considered in the medical decision making process. Course/Dx - Course Course Of Treatment: High BP noted. Patient's medications reviewed this visit. Assessment/Plan: The patient is a 21 y/o M who returns to [facility] c/o L breast pain and L axilla pain. The pt has an abscess to his left breast that had an I& D performed by Dr. Abraham two days ago that has a drain. He was an inpatient at [facility] yesterday for IV Abx but he left AMA. In the ED course the patient was given Oxycodone, Clonazepam, IV fluids, and Kefzol. He will be admitted to [facility] [place]. Joe. - Differential Diagnoses - Skin Complaint Differential Diagnoses: Abscess, Cellulitis, Lymphadenitis, MRSA, Other - staph bacteremia, endocarditis - Diagnoses Provider Diagnoses: Left breast abscess, Abscess of axilla, left, Staphylococcus aureus bacteremia - Physician Notifications Discussed Care Of Patient With: Shaun Joe Time Discussed With Above Provider: 05:11 Instructed by Provider To: Other - Dr Joe, template fitter, accepts the patient for admission to [facility]. - Critical Care Time Critical Care Time: 30-74 min - 30 minutes Discharge - Discharge Plan Condition: Stable Disposition: ADMITTED TO [facility] documentation as recorded by the Barbara york Thomas accurately reflects the service I personally performed and the decisions made by , Nano Shafer MD.
--- NOTE | 2016-12-20 11:39 | HP ---
HISTORY AND PHYSICAL: DATE OF ADMISSION: 12/20/16 ADMITTING PHYSICIAN: Herberth Vega MD PRIMARY CARE PHYSICIAN: Dr. Pawan Cole CHIEF COMPLAINT: Left chest abscess and left axillary abscess, uncontrolled pain, cellulitis. HISTORY OF PRESENT ILLNESS: The patient is a 21-year-old male, recently admitted to the hospital a day prior for similar symptoms, who left AMA overnight. Of note, he had an incision and drainage near his left nipple with Dr. Abraham. He had positive blood cultures for staph in his blood, which is not MRSA. Dr. Biswas was consulted and the patient was placed on Ancef. Later in the afternoon, the patient complained that his grandfather's money clip was lost in the emergency room and he was seeking care elsewhere, his pain was uncontrolled, so he returned to the ED overnight. He attests that his left axillary erythematous bump has grown in size since evaluated by Dr. Abraham, "6 times bigger" and is very tender, painful and is concerned that he has another abscess in this axillary region. Of note, Dr. Abraham was more concerned for swollen lymph nodes at the time of evaluation around 10 or 11 a.m. a day prior to admission. Preliminary wound culture from I and D was also positive for Staph aureus, MRSA negative. On admission, 1 of 4 blood cultures had been positive for Staph aureus in the anaerobic bottle, it is sensitive to cefazolin. The patient was given oxycodone 15, clonazepam 2 mg once in the ED. The patient on initial evaluation was asleep, but complained of pain upon waking up. He was given another dose of cefazolin and is being admitted to the hospital with Surgery consultation. PAST MEDICAL HISTORY: Anxiety. PAST SURGICAL HISTORY: Tonsillectomy and adenoidectomy, excision of right groin cyst. HOME MEDICATIONS: None. ALLERGY TO MEDICATIONS: No known drug allergies. FAMILY HISTORY: Mother had a history of cancer. Father had a history of diabetes and heart disease. SOCIAL HISTORY: Pack a day, smoked for 10 years. Daily marijuana smoker. Denies alcohol abuse and denies IV drug abuse, although reportedly used cocaine in the past. REVIEW OF SYSTEMS: Negative 14-point review of systems. Denies fevers. Positive for significant pain in left chest and axilla. No headaches. No sore throat. No thyroid enlargement. No shortness of breath, chest pain, abdominal pain, nausea or vomiting. PHYSICAL EXAMINATION GENERAL: Initially asleep, in no acute distress, but agitated upon waking, complaining of severe pain with movement. VITAL SIGNS: Temperature 98.3, blood pressure 129/74, satting 99% on room air, respiratory rate 18, pulse rate 94 improved to 73. HEENT: Atraumatic, normocephalic. EOMs intact. No scleral icterus. NECK: Supple. Mucous membranes moist. No lesions. LUNGS: Clear to auscultation bilaterally. No wheezing, rales, or rhonchi. CARDIOVASCULAR: Regular rate and rhythm. No murmurs, rubs or gallops. ABDOMEN: Soft, nontender, nondistended. No rebound or guarding. EXTREMITIES: Warm, well perfused. No peripheral edema. SKIN: Incision on the left areola, left lower quadrant, slightly open. No raeann purulence. Erythema and tenderness on the lateral left breast approximately 2 inch nodule in left axillary, which is tender from erythematous. DIAGNOSTIC STUDIES/LAB DATA: White count 12.4, hemoglobin 12.9, hematocrit 38% , platelets 189. Sodium 138, potassium 3.9, chloride 106, carbon dioxide 27, BUN 12, creatinine 0.69, lactic acid 0.3, magnesium 1.8, CRP 78, AST 18, ALT 16 , alk phos 41, glucose 89. No imaging studies, but had a chest x-ray a day prior, which demonstrated clear lungs and soft tissue abnormality in the left chest wall. ASSESSMENT AND PLAN: The patient is a 21-year-old male re-presenting after leaving [facility] with a left chest abscess, status post I and D, with 1 out of 4 bottles of Staph aureus sensitive to cefazolin on initial blood cultures yesterday. The patient will be admitted, continued on Ancef 2 g every 8 hours. Pain controlled with oxycodone 10 mg p.o. q. [address] Medina of General Surgery was informed that patient had returned and will evaluate the patient. Low concern for infective endocarditis given only 1 of 4 bottles were positive, but we will follow up repeat blood cultures drawn in the ED overnight. The patient will be admitted to inpatient status for further treatment of his abscesses and bacteremia. Anticipate at least a 2-week course given initial positive blood culture per previous plan. The patient is a full code. We will give a regular diet, will be able to ambulate. We will place SCDs. The patient's medical surrogate is Cristina Winkler, she is a nurse here on [facility]. [id number]/[facility] #: [id number] MTDD
[2016-12-20] MEDS: Nicotine PATCH 14 MG/24 HR* PATCH TRANSDERM SCH (12:29)
[2016-12-20] MEDS: ceFAZolin 2 GM PREMIX (*) 100 ML IVPB SCH ×2 (12:30→21:09)
[2016-12-20] MEDS ORDERED: HYDROmorphone INJ* 1 MG/ML CARPUJECT SYRINGE IV SLOW PU ONE ×2 (13:25→14:08)
[2016-12-20] MEDS ORDERED: Lidocaine 4% TOPICAL* 50 ML TOP.SOLN TOPICAL ONE (13:26)
[2016-12-20] MEDS ORDERED: HYDROmorphone INJ* 1 MG/ML CARPUJECT SYRINGE IV SLOW PU PRN (14:22)
--- NOTE | 2016-12-20 14:32 | PN ---
Progress Note - Progress Note Date of Service: 12/20/16 SOAP: Subjective: PT seen and examined. Left AMA and friend convinced him to return. Significant pain at L axilla and chest. POD2 I and D of l breast abscess. Tolerating diet pain meds "not working" though patient asleep when I entered room Objective: [af vss L axilla: swollen tender, red palpable nodules x2 with one c/w fluctuence. L periareollar packing rechanged. Dull surrounding erythema Assessment: POD 2 I and D, S. aureus with positive bl Cx Plan: abx wound care r/o additional abscesses with U/S of L axilla
[2016-12-20] MEDS: clonazePAM TAB(*) 1 MG PO PRN ×2 (15:27→20:28)
--- NOTE | 2016-12-20 16:01 | RAD ---
HISTORY: Left axillary lump COMPARISONS: Breast ultrasound dated December 18, 2016 TECHNIQUE: Multiple transverse and longitudinal ultrasound images were obtained of the left axilla using grayscale and color Doppler imaging FINDINGS: There is extensive subcutaneous edema with a complex fluid collection measuring 3.1 x 2.4 x 1.9 cm in size. IMPRESSION: COMPLEX FLUID COLLECTION OF THE LEFT AXILLA MEASURING UP TO 3.1 CM IN SIZE, MOST CONSISTENT WITH ABSCESS GIVEN THE CLINICAL HISTORY
[2016-12-20] MEDS ORDERED: HYDROmorphone INJ* 1 MG/ML CARPUJECT SYRINGE ONE ×2 (17:17→17:24)
--- NOTE | 2016-12-20 17:18 | PN ---
Hospitalist Progress Note Pt was asked about mood. Pt denies history or current suicidal ideation. Does not have an active or history of plan. Denies history of intentional or accidental overdose psych meds or otherwise. Reports he takes oxycodone 30mg two to three times a day, last 10-14 days ago.
[2016-12-20] MEDS: HYDROmorphone INJ* 1 MG/ML CARPUJECT SYRINGE IV SLOW PU PRN ×4 (17:27→22:41)
[2016-12-20] MEDS: oxyCODONE TAB* 5 MG TAB PO PRN (18:44)
--- NOTE | 2016-12-20 20:05 | PN ---
Progress Note - Progress Note Date of Service: 12/20/16 Note: Cross cover note: Called to see patient. He was agitated because of presence of one to one. Re assessed patient. He denies any suicidal ideation. He says "if I wanted to kill myself I would have stayed at home with this infection" and notes he was "told" he had 48 hours to live if he didn't come in." 1:1 discontinued Added ketoralac at patients request but discussed not changing any opioids and allowing him and Dr. Vega to adjust tomorrow if needed. Patient in agreement with plan and calm during entire conversation.
[2016-12-20] MEDS: Ketorolac INJ* 30 MG/ML 1 ML VIAL IV PUSH PRN (21:46)
[2016-12-20] MEDS: Nicotine Patch Removal NOTE PATCH OFF SCH (21:48)
[2016-12-21] MEDS: oxyCODONE TAB* 5 MG TAB PO PRN ×3 (01:36→19:25)
[2016-12-21] MEDS: HYDROmorphone INJ* 1 MG/ML CARPUJECT SYRINGE IV SLOW PU PRN ×8 (01:37→23:58)
[2016-12-21] MEDS: clonazePAM TAB(*) 1 MG PO PRN ×2 (03:05→17:09)
[2016-12-21] MEDS: ceFAZolin 2 GM PREMIX (*) 100 ML IVPB SCH ×3 (05:47→22:32)
[2016-12-21] MEDS: Ketorolac INJ* 30 MG/ML 1 ML VIAL IV PUSH PRN ×3 (07:22→19:13)
[2016-12-21] MEDS: Nicotine PATCH 14 MG/24 HR* PATCH TRANSDERM SCH (07:23)
--- NOTE | 2016-12-21 10:07 | PN ---
Subjective Date of Service: 12/21/16 Interval History: Patient seen at bedside. Pt is refusing a physical assessment at this time. He is also not willing to have a discussion to do a review of systems at this time. He is upset about being yelled at for smoking in the Hospital (in his bathroom). Call to PCP office to verify home medications, Pt has not been in the office since 2014 and has not gotten refills since then. Family History: Unchanged from Admission Social History: Unchanged from Admission Past Medical History: Unchanged from Admission Objective Active Medications: Clonazepam (Klonopin Tab(*)) 1 mg PO BID PRN Reason: AGITATION/ANXIETY Hydromorphone HCl (Dilaudid Inj*) 0.5 mg IV SLOW PU Q2H PRN Reason: PAIN Cefazolin Sodium/Dextrose (Kefzol 2 Gm Premix(*)) 100 mls @ 200 mls/hr IVPB Q8H MEG Ketorolac Tromethamine (Toradol Inj*) 30 mg IV PUSH Q6H PRN Reason: PAIN Nicotine (Nicotine Patch 14 Mg/24 Hr*) 1 patch TRANSDERM DAILY MEG Oxycodone HCl (Roxycodone Tab*) 30 mg PO Q6H PRN Reason: PAIN Pharmacy Profile Note (Nicotine Patch Removal Note*) 1 note PATCH OFF 2100 MEG Vital Signs 12/20/16 12/20/16 12/20/16 15:19 15:27 15:54 Temperature 97.7 F Pulse Rate 83 Respiratory 18 20 20 Rate Blood Pressure 127/59 (mmHg) O2 Sat by Pulse 98 Oximetry 12/20/16 12/20/16 12/20/16 20:00 20:16 20:28 Temperature 99.3 F Pulse Rate 91 Respiratory 16 20 16 Rate Blood Pressure 142/47 (mmHg) O2 Sat by Pulse 99 Oximetry 12/20/16 12/21/16 12/21/16 23:40 01:01 01:36 Temperature Pulse Rate 66 77 Respiratory 20 16 Rate Blood Pressure 108/62 139/73 (mmHg) O2 Sat by Pulse 99 Oximetry 12/21/16 12/21/16 12/21/16 03:59 04:37 07:23 Temperature Pulse Rate 73 Respiratory 20 14 16 Rate Blood Pressure 113/75 (mmHg) O2 Sat by Pulse 100 Oximetry Oxygen Devices in Use Now: None Appearance: NAD, sitting up on the side of the bed Neurological: Alert and Oriented x 3 Nutrition: Taking PO's Result Diagrams: 12/20/16 04:45 12/20/16 04:45 Additional Lab and Data: Assess/Plan/Problems-Billing Assessment: Mr. Chávez is a 21 yo male with PMH of anxiety, who presented to the emergency room for evaluation after leaving the hospital AMA the day prior where he was admitted for a left chest abscess, left axillary abscess and cellulitis. - Patient Problems (1) Abscess Code(s): L02.91 - CUTANEOUS ABSCESS, UNSPECIFIED SNOMED Code(s): 282647278 Comment: - Left chest and axillary abscess - S/P I+D left chest abscess 12/18 - BC from 12/18 with / positive for staph aureus - Repeat blood cultures negative, day 1 - Continue pain managment and cefazolin - Plan for I+D left axillary abscess later today (2) Anxiety Code(s): F41.9 - ANXIETY DISORDER, UNSPECIFIED SNOMED Code(s): 93590191 Comment: - May benefit from a psych consult - Per Pt's PCP they have not prescribed medications in 2 years (3) Tobacco abuse Code(s): Z72.0 - TOBACCO USE SNOMED Code(s): 631150355 Comment: - Encouraged cessation - Nicotine replacement provided (4) DVT prophylaxis Code(s): UIB0870 - SNOMED Code(s): 655954105 Comment: - Ambulation (5) Full code status Code(s): Z78.9 - OTHER SPECIFIED HEALTH STATUS SNOMED Code(s): 306001454 Status and Disposition: Inpatient. Discharge to home when medically stable.
[2016-12-21] MEDS ORDERED: Nicotine Inhaler* 10 MG AMP INH PRN (14:00)
--- NOTE | 2016-12-21 14:17 | CONS ---
CONSULTATION REPORT: DATE OF CONSULT: 12/21/16 REQUESTING PROVIDER: Lianna Santiago NP CONSULTING SERVICE: Infectious Disease. REASON FOR CONSULT: Staph bacteremia and abscess. IMPRESSION: 1. Retroareolar left breast abscess, status post incision and debridement on . Culture grew Staphylococcus aureus, blood culture bottles 03/25 was Staphylococcus aureus as well. Now, has left axillary abscess. He did leave against medical advice for a couple of days in the interim. 2. Anxiety. RECOMMENDATIONS: 1. Agree with Ancef 2 g IV every 8 hours. He is going to have another incision and debridement of the left axilla today. 2. HIV antibody. HISTORY OF PRESENT ILLNESS: This is a 21-year-old man admitted with left axillary and chest pain. He was in the hospital from 12/18/16 through . He had abscess drained of the left breast by Dr. Abraham. He was on Ancef. I discussed the case at that time with Jorgito Jenkins NP, recommended chest x-ray to rule out communication with pleural space. The chest x-ray showed no infiltrate or pleural abnormalities. He left against medical advice on 12/19/16, came back yesterday with left axillary swelling, pain, fevers, and chills. He would not provide much history as he says his main concern is he is hungry and does not want to discuss these issues with me. Most of the history was obtained from discussion with Lianna Santiago NP, and review of the medical record. PAST MEDICAL HISTORY: 1. Anxiety. 2. Status post tonsillectomy, adenoidectomy. MEDICATIONS: 1. Cefazolin 2 g IV every 8 hours. 2. Nicotine patch. 3. Clonazepam. 4. Oxycodone. FAMILY HISTORY: Noncontributory. SOCIAL HISTORY: Lives in [place]. Has spent time in longterm. Denies injection drugs or past illicit's. REVIEW OF SYSTEMS: All negative 14-point review of systems except as noted above including no spine or joint pain. PHYSICAL EXAM: Vital Signs: Temperature is 37.4, heart rate 73, respiratory rate 14, blood pressure 113/75, O2 sat 100% on room air. In general, he is asleep, but awakens, does not appear to be in distress. He otherwise refuses an exam at this point. DIAGNOSTIC STUDIES/LAB DATA: White blood cell count 12, hemoglobin 12, platelets 189. Creatinine 0.7. CRP 78. Soft tissue ultrasound from yesterday showed left axillary 3-cm fluid collection. Please see impressions and recommendations outlined above which I have discussed with Lianna Santiago NP Thank you for asking me to see Ms. Clancy in consultation. [id number]/[facility] #: [id number] ELLA
[2016-12-21] MEDS ORDERED: Albuterol HFA INHALER* 8 gm MDI INH PRN (15:54)
[2016-12-21] MEDS ORDERED: HYDROmorphone INJ* 1 MG/ML CARPUJECT SYRINGE ONE ×2 (16:15→18:59)
[2016-12-21] MEDS ORDERED: Bupivacaine 0.5% SDV PF* 30 ML VIAL ONE (18:04)
[2016-12-21] MEDS ORDERED: fentaNYL* 50 MCG/ML 2 ML VIAL (100 MCG VIAL) ONE ×3 (18:07→19:11)
--- NOTE | 2016-12-21 18:47 | SURGPN ---
Brief Operative Note - Surgery Procedures: Procedures INJECT/INFUSE NEC (06/18/12) OPERATIVE REPORT PRE-OP: Left axillary abscess, Left breast abscess S/P Incision and drainage POST-OP: Same PROCEDURE: 1) Incision and drainage of left axillary abscess 2) Packing change left breast abscess SURGEON: MD Jarad ANESTHESIA: General with local with Dr. Lenz ASST: none IVF:min EBL: min SPECIMEN: Fluid from left axillary abscess for gram stain and culture DRAIN: none WOUND CLASS: 4 COMPLICATIONS: none TO PACU
[2016-12-21] MEDS: fentaNYL* 50 MCG/ML 2 ML VIAL (100 MCG VIAL) IV PRN ×4 (19:04→19:27)
[2016-12-21] MEDS ORDERED: Ketorolac INJ* 30 MG/ML 1 ML VIAL ONE (19:11)
[2016-12-21] MEDS ORDERED: oxyCODONE TAB* 5 MG TAB ONE (19:24)
[2016-12-21] MEDS: Nicotine Patch Removal NOTE PATCH OFF SCH (22:32)
[2016-12-22] MEDS: clonazePAM TAB(*) 1 MG PO PRN (00:08)
[2016-12-22 00:14] VITALS: BP 111/68
--- NOTE | 2016-12-22 13:05 | OP ---
DATE OF OPERATION: 12/21/16 - ROOM #438 DATE OF : 89 SURGEON: Austin Abraham MD ANESTHESIOLOGIST: Rikki Mendez MD ANESTHESIA: General with local. PRE-OP DIAGNOSES: 1. Existing left breast abscess status post incision and drainage. 2. Left axillary abscess. POST-OP DIAGNOSES: 1. Existing left breast abscess status post incision and drainage. 2. Left axillary abscess. OPERATIVE PROCEDURE: 1. Incision and drainage of left axillary abscess with cultures. 2. Packing change and irrigation of the left breast abscess. INDICATIONS: Pawan Clancy is a 21-year-old gentleman who had presented to the hospital several days ago with a left breast abscess requiring incision and drainage in the operating room with packing. This returned as Staph aureus. He also grew out Staph aureus in 1/4 blood cultures from his blood and was started on appropriate antibiotics. He was improving over the weekend, but he signed out AMA, but returned later the same day with increasing pain, swelling, and redness in the left axilla and was felt to have an abscess and was readmitted to the medical service and started on IV antibiotics. An ultrasound of the left axilla confirmed what appears to be a 3-cm subcutaneous abscess and clinically he has a fluctuant mass in the left axilla with redness, tenderness, also consistent with an abscess. His left breast abscess shows considerable improvement in the swelling as well as the cellulitis and drainage, still has significant amount of induration, but appeared to be clean. The plan now is to proceed to the operating room with incision and drainage of the left axillary abscess as well as packing change and irrigation of his left breast abscess. The procedure was discussed with the patient, the risks of bleeding, infection, discomfort, further surgical intervention and the risk of anesthesia were explained. ESTIMATED BLOOD LOSS: Minimal. SPECIMENS: Fluid for Gram staining and culture from left axillary abscess. WOUND CLASSIFICATION: IV. COMPLICATIONS: None. DRAINS: None. DESCRIPTION OF PROCEDURE: Written informed consent was obtained, both the left breast and left axilla were marked with indelible ink and preoperative antibiotics had been administered. He was taken to the operating room and anesthesia was administered. The left breast and left axilla were block draped. Time-out verification was completed. Initially, I removed some packing and irrigated the left breast abscess. This appeared to be clean; however, there was some still significant induration but no odor, purulence, or undrained pus, and I packed this with half-inch Nu Gauze covered with dry gauze. Gloves were changed and a transverse incision was made over the palpable fluctuant mass in the left axilla. Here, I entered a large amount of creamy, non-smelling pus, which was cultured. Any loculations were broken up, it seemed rather superficial, and irrigated. Cultures were sent. Once hemostasis was assured, I packed this with one half-inch Nu Gauze and covered with dry gauze and an ABD pad. The patient tolerated the procedure well. He was taken to recovery room in stable condition. [id number]/[facility] #: [id number] ELLA
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
== END 2016-12-22 01:50 | disposition left against medical advice (07) | DRG 581 ==
LOC: ED 01:32 → MEDTELE 07:35
PROVIDERS: ADMIT Internal Medicine; ATTEND Internal Medicine
PROC: 3E1038Z Irrigation of Skin and Mucous Membranes using Irrigating Substance, Percutaneous Approach (ICD-10-PCS; 2016-12-21)
PROC: 0J9F0ZZ Drainage of Left Upper Arm Subcutaneous Tissue and Fascia, Open Approach (ICD-10-PCS; principal; 2016-12-21 15:30)
DX: L02.412 Cutaneous abscess of left axilla (principal); B95.61 Methicillin susceptible Staphylococcus aureus infection as the cause of diseases classified elsewhere; N61.1 Abscess of the breast and nipple; F17.210 Nicotine dependence, cigarettes, uncomplicated; F41.9 Anxiety disorder, unspecified
CPT/HCPCS: 36415; 80053; 83605; 83735; 85025; 85610; 86140; 86703; 87040; 87070; 87073; 87077; 87186; 87205; 87640; 87641; 99406; A9270-GY; J0690; J1170; J1885; J3010

== ENCOUNTER 2017-02-15 21:43 | Emergency (ER) | payer SELFPAY ==
[2017-02-15] MEDS ORDERED: NS 0.9% 1000 ML* 1,000 ML IV ONE (22:48)
[2017-02-15] MEDS ORDERED: Tetan/Diph/Pertus SYR(Tdap)* 0.5 ML SYR(BOOSTRIX) use SYR IM ONE (22:51)
[2017-02-15] MEDS ORDERED: Iohexol 300* (CONTRAST) 10 ML SDV IV ONE (23:12)
[2017-02-15 23:35] LABS: Hematocrit 43 % (42-52); Hemoglobin 14.1 g/dl (14.0-18.0); Mean Corpuscular HGB Conc 33 g/dl (31-36); Mean Corpuscular Hemoglobin 27 pg (27-31); Mean Corpuscular Volume 83 fL (80-94); Mean Platelet Volume 8 um3 (7.4-10.4); Red Blood Count 5.16 10^6/ul (4.0-5.4); Red Cell Distribution Width 15 % (10.5-15); White Blood Count 7.1 10^3/ul (3.5-10.8)
[2017-02-15] MEDS ORDERED: traMADol TAB* 50 MG PO ONE (23:47)
[2017-02-15 23:50] LABS: Albumin 4.1 g/dL (3.2-5.2); BUN/Creatinine Ratio 12.8 (8-20); Calcium 8.6 mg/dL (8.6-10.3); EGFR African American 144.4 (>60); EGFR Non-African American 112.3 (>60); Globulin 3.2 g/dL (2-4); Potassium 4.2 mmol/L (3.5-5.0); Total Bilirubin 0.3 mg/dL (0.2-1.0); Total Protein 7.3 g/dL (6.4-8.9)
[2017-02-15 23:51] LABS: Troponin I 0.01 ng/mL (<0.04)
[2017-02-16] MEDS ORDERED: Ibuprofen TAB* 600 MG PO ONE (00:47)
[2017-02-16 01:06] VITALS: BP 123/79
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
--- NOTE | 2017-02-16 07:52 | RAD ---
Indication: Right lower leg pain. 2 views of the right lower leg demonstrates no fracture. No other bone or joint abnormality is identified. IMPRESSION: No fracture of the right femur is noted.
== END 2017-02-16 01:05 | disposition home or self-care (01) ==
LOC: ED 21:43
DX: S09.90XA Unspecified injury of head, initial encounter (principal); S30.811A Abrasion of abdominal wall, initial encounter; X99.8XXA Assault by other sharp object, initial encounter; Y93.9 Activity, unspecified; Y92.9 Unspecified place or not applicable; Z23 Encounter for immunization; J45.909 Unspecified asthma, uncomplicated; F41.9 Anxiety disorder, unspecified; F10.10 Alcohol abuse, uncomplicated; F12.90 Cannabis use, unspecified, uncomplicated; F17.210 Nicotine dependence, cigarettes, uncomplicated
CPT/HCPCS: 36415; 70450; 71260; 74177; 80053; 83690; 84484; 85025; 85610; 90471; 99285; A9270-GY; Q9967

== ENCOUNTER 2017-03-07 23:50 | Emergency (ER) | payer SELFPAY ==
[2017-03-07 23:58] VITALS: BP 135/101
[2017-03-08] MEDS ORDERED: Ibuprofen TAB* 400 MG PO ONE (01:11)
[2017-03-08] MEDS ORDERED: Cephalexin CAP* 500 MG PO ONE (01:12)
[2017-03-08] MEDS ORDERED: Tetan/Diph/Pertus SYR(Tdap)* 0.5 ML SYR(BOOSTRIX) use SYR IM ONE (01:12)
[2017-03-08] MEDS ORDERED: Ibuprofen TAB* 400 MG ONE (01:25)
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
== END 2017-03-08 01:29 | disposition home or self-care (01) ==
LOC: ED 23:50
DX: T24.211A Burn of second degree of right thigh, initial encounter (principal); L03.90 Cellulitis, unspecified; X10.2XXA Contact with fats and cooking oils, initial encounter; Y93.9 Activity, unspecified; Y92.9 Unspecified place or not applicable
CPT/HCPCS: 90471; 90715; 99282; A9270-GY

== ENCOUNTER 2017-07-02 18:10 | Emergency (ER) | payer SELFPAY ==
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
[2017-07-02 19:43] VITALS: BP 150/81
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
== END 2017-07-02 19:41 | disposition home or self-care (01) ==
LOC: ED 18:10
DX: S33.5XXA Sprain of ligaments of lumbar spine, initial encounter (principal); Y35.813A Legal intervention involving manhandling, suspect injured, initial encounter; Y92.9 Unspecified place or not applicable; F17.210 Nicotine dependence, cigarettes, uncomplicated
CPT/HCPCS: 36415; 72100; 86703; 99282

== ENCOUNTER 2017-12-26 20:18 | Emergency (ER) | payer OTHER ==
[2017-12-26 20:27] VITALS: BP 111/57
[2017-12-26] MEDS ORDERED: Ibuprofen TAB* 600 MG PO ONE (20:53)
[2017-12-26] MEDS ORDERED: Sulfamethox/Trimethoprim DS 800/160* TAB PO ONE (22:13)
--- NOTE | 2017-12-26 22:14 | ED ---
Laceration/Wound HPI - HPI Summary HPI Summary: Patient complains of laceration along the length of dorsal surface of right index finger from a kitchen knife. Bleeding controlled. Denies any other pain , injury, symptoms, loss of sensation or function distally. States tetanus status up-to-date from surgery 8 months ago. - History of Current Complaint Stated Complaint: RT HAND LACERATION Time Seen by Provider: 12/26/17 20:53 Hx Obtained From: Patient Mechanism of Injury: Sharp/Blunt Trauma Onset/Duration: Sudden Onset Aggravating: Movement Timing: Constant Onset Severity: Moderate Current Severity: Moderate Pain Intensity: 7 Pain Scale Used: 0-10 Numeric Associated Signs & Symptoms: Pain - Allergy/Home Medications Allergies/Adverse Reactions: Allergies Allergy/AdvReac Type Severity Reaction Status Date / Time Fish Containing Products Allergy Unknown Verified 12/26/17 20:26 Reaction Details shellfish derived Allergy Unknown Verified 12/26/17 20:42 Reaction Details PMH/Surg Hx/FS Hx/Imm Hx Endocrine/Hematology History: Denies: Hx Anticoagulant Therapy, Hx Diabetes, Hx Thyroid Disease Cardiovascular History: Denies: Hx Hypertension, Hx Pacemaker/ICD Respiratory History: Reports: Hx Asthma Denies: Hx Chronic Obstructive Pulmonary Disease (COPD) History: Denies: Hx Renal Disease Sensory History: Denies: Hx Contacts or Glasses, Hx Hearing Aid Opthamlomology History: Denies: Hx Contacts or Glasses Neurological History: Denies: Hx Dementia, Hx Seizures Psychiatric History: Reports: Hx Anxiety, Hx Substance Abuse - ETOH - Surgical History Surgery Procedure, Year, and Place: tonsillectomy and adenoidectomy 6 years ago Hx Anesthesia Reactions: No - Immunization History Date of Tetanus Vaccine: Pt is unsure of status Infectious Disease History: No Infectious Disease History: Denies: Hx Clostridium Difficile, Hx Hepatitis, Hx Human Immunodeficiency Virus (HIV), Traveled Outside the [place] in Last 30 Days - Family History Known Family History: Positive: None, Other - FHx anxiety and cancer Negative: Cardiac Disease, Hypertension, Diabetes - Social History Alcohol Use: Weekly Alcohol Amount: 2 days ago Hx Substance Use: Yes Substance Use Type: Reports: Marijuana Substance Use Comment - Amount & Last Used: earlier today 0700 Hx Tobacco Use: Yes Smoking Status (MU): Heavy Every Day Tobacco Smoker Type: Cigarettes Review of Systems Constitutional: Negative Eyes: Negative ENT: Negative Cardiovascular: Negative Respiratory: Negative Gastrointestinal: Negative Genitourinary: Negative Positive: Arthralgia Skin: Other Neurological: Negative Psychological: Normal All Other Systems Reviewed And Are Negative: Yes Physical Exam - Summary Physical Exam Summary: Flexion and extension intact at each individual joint along right index finger. No evidence of tendon involvement. Bleeding controlled. PMS intact distally Triage Information Reviewed: Yes Vital Signs On Initial Exam: Initial Vitals Temp Pulse Resp BP Pulse Ox 98.1 F 112 20 111/57 96 12/26/17 20:20 12/26/17 20:20 12/26/17 20:20 12/26/17 20:20 12/26/17 20:20 Vital Signs Reviewed: Yes Appearance: Positive: Well-Appearing Skin: Positive: Warm Head/Face: Positive: Normal Head/Face Inspection Eyes: Positive: Normal Neck: Positive: Supple Respiratory/Lung Sounds: Positive: Clear to Auscultation Cardiovascular: Positive: Normal Abdomen Description: Positive: Nontender Musculoskeletal: Positive: Normal Neurological: Positive: Normal Psychiatric: Positive: Normal AVPU Assessment: Alert - [place] Coma Scale Best Eye Response: 4 - Spontaneous Best Motor Response: 6 - Obeys Commands Best Verbal Response: 5 - Oriented Coma Scale Total: 15 Procedures - Laceration/Wound Repair 1 Location: upper extremity Description: Irregular Anesthesia: Local, 1.0% Length, Depth and Shape: 8cm x 1cm Betadine Prep?: Yes Irrigated w/ Saline (ccs): 100 - under pressure Laceration/Wound Explored: clean Debridement: minimal Number of Sutures: 20 - 4.0 ethilon Layer Closure?: No Diagnostics - Vital Signs Vital Signs Temp Pulse Resp BP Pulse Ox 12/26/17 20:20 98.1 F 112 20 111/57 96 - Laboratory Lab Statement: Any lab studies that have been ordered have been reviewed, and results considered in the medical decision making process. Laceration Repair Course/Dx - Course Course Of Treatment: Patient complains of laceration along the length of dorsal surface of right index finger from a kitchen knife. Bleeding controlled. Denies any other pain, injury, symptoms, loss of sensation or function distally. States tetanus status up-to-date from surgery 8 months ago. Physical exam:Flexion and extension intact at each individual joint along right index finger. No evidence of tendon involvement. Bleeding controlled. PMS intact distally. Vital signs within normal limits. Wound sutured. Rx for Bactrim. Started on Bactrim here in the ED. - Clinical Impression Provider Diagnoses: Laceration Discharge - Sign-Out/Discharge Documenting (check all that apply): Patient Departure - Discharge Plan Condition: Stable Disposition: HOME Prescriptions: Sulfamethox/Trimethoprim DS* [Bactrim DS 800/160 TAB*] 1 tab PO BID 10 Days #20 tab Patient Education Materials: Care For Your Stitches (ED), Laceration (ED), Finger Laceration (ED) Referrals: Pawan Cole MD [Primary Care Provider] - Additional Instructions: Starting tomorrow May wash with warm running water and soap. Do not submerge underwater. Take antibiotics as directed. Sutures out in 10 days. Keep protected when not washing. Return to the ED for any new or worsening symptoms including redness, pus, swelling. - Billing Disposition and Condition Condition: STABLE Disposition: Home
== END 2017-12-26 22:22 | disposition home or self-care (01) ==
LOC: ED 20:18
DX: S61.210A Laceration without foreign body of right index finger without damage to nail, initial encounter (principal); W26.0XXA Contact with knife, initial encounter; Y92.9 Unspecified place or not applicable; F17.210 Nicotine dependence, cigarettes, uncomplicated
CPT/HCPCS: 12004; 99281; A9270-GY

== ENCOUNTER 2019-06-16 09:58 | Emergency (ER) | payer OTHER ==
[2019-06-16 10:11] VITALS: BP 167/80
[2019-06-16] MEDS ORDERED: Ondansetron ODT TAB* 4 MG PO ONE (10:13)
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
== END 2019-06-16 11:30 | disposition home or self-care (01) ==
LOC: UCEAST 09:58
DX: S09.90XA Unspecified injury of head, initial encounter (principal); S01.01XA Laceration without foreign body of scalp, initial encounter; Y04.8XXA Assault by other bodily force, initial encounter; Y92.9 Unspecified place or not applicable; Z91.013 Allergy to seafood; F17.210 Nicotine dependence, cigarettes, uncomplicated
CPT/HCPCS: 12001; 70450; 99212; A9270-GY; G0463

== ENCOUNTER 2020-02-22 12:57 | Inpatient (IN) ==
[2020-02-22 15:24] LABS: ALT 39 U/L (7-52); AST 30 U/L (13-39); Albumin 2.8 g/dL (3.2-5.2); Albumin/Globulin Ratio 0.6 (1-3); Alkaline Phosphatase 205 U/L (34-104); BUN/Creatinine Ratio 17.7 (8-20); Blood Urea Nitrogen 29 mg/dL (6-24); CO2 Carbon Dioxide 25 mmol/L (22-32); Calcium 8.7 mg/dL (8.6-10.3); Chloride 97 mmol/L (101-111); EGFR African American 62.8 (>60); EGFR Non-African American 51.9 (>60); Globulin 4.6 g/dL (2-4); Glucose 100 mg/dL (70-100); Sodium 132 mmol/L (135-145); Total Protein 7.4 g/dL (6.4-8.9)
[2020-02-22] MEDS ORDERED: NS 0.9% 1000 ml BAG 1,000 ML IV ONE (15:29)
[2020-02-22] MEDS ORDERED: Lidocaine 1% VIAL 10 MG/ML VIAL INJ ONE (15:44)
[2020-02-22] MEDS ORDERED: Lidocaine 1% VIAL 10 MG/ML VIAL ONE (15:46)
[2020-02-22 15:52] LABS: Anion Gap 10 mmol/L (2-11); Potassium 2.5 mmol/L (3.5-5.0)
[2020-02-22] MEDS ORDERED: Vancomycin 1,500 MG in NS 0.9% 250 ml 250 ML IVPB ONE (16:04)
[2020-02-22] MEDS ORDERED: KCL 20 MEQ/100 ML IVPREMIX 20 MEQ/100 ML BAG IV ONE (16:04)
[2020-02-22] MEDS ORDERED: cefTRIAXone 2 GM ADDV.VIAL 2 GM in NS 0.9% 100 ml BAG 100 ML IVPB ONE (16:05)
[2020-02-22 16:23] LABS: ABS Monocytes 0.8 10^3/ul (0-0.8); ABS Neutrophils 21.8 10^3/ul (1.5-7.7); Eosinophil % 0.1 %; Hematocrit 34 % (42-52); Hemoglobin 11.1 g/dL (14.0-18.0); Lymphocyte % 4.2 %; Mean Corpuscular HGB Conc 33 g/dL (31-36); Mean Corpuscular Hemoglobin 24 pg (27-31); Mean Corpuscular Volume 74 fL (80-94); Platelet Count 326 10^3/uL (150-450); Red Cell Distribution Width 18 % (10-15); White Blood Count 23.6 10^3/uL (3.5-10.8)
[2020-02-22] MEDS ORDERED: NS 0.9% 1000 ml BAG 1,000 ML IV SCH (17:15)
[2020-02-22 17:49] LABS: Magnesium 1.8 mg/dL (1.9-2.7); Total Iron Binding Capacity 227 mcg/dL (250-450); Transferrin 162 mg/dL (203-362)
[2020-02-22] MEDS ORDERED: Vancomycin per Pharmacy 1 EA NOTE FOLLOW UP SCH (18:00)
[2020-02-22 18:14] LABS: Vitamin B12 357 pg/mL (180-914)
[2020-02-22 18:17] LABS: Urine Appearance Cloudy; Urine Bilirubin Negative (Negative); Urine Blood 1+ (Negative); Urine Color Amber; Urine Glucose Negative (Negative); Urine Ketones Negative (Negative); Urine Nitrite Negative (Negative); Urine Protein 1+(30 mg/dL) (Negative); Urine Specific Gravity 1.012 (1.010-1.030); Urine Urobilinogen Negative (Negative)
[2020-02-22] MEDS ORDERED: KCL 20 MEQ/100 ML IVPREMIX 20 MEQ/100 ML BAG ONE (18:18)
[2020-02-22 18:28] LABS: Urine Bacteria Absent (Absent); Urine Red Blood Cell 1+(3-5/hpf) (Absent); Urine Squamous Epithelial Cell Present (Absent); Urine White Blood Cell 2+(11-20/hpf) (Absent)
[2020-02-22 18:41] LABS: % Iron Saturation 9 % (15-55); Iron < 20 ug/dL (50-212); Unsaturated Iron Binding < 212 ug/dL
[2020-02-22 19:16] LABS: Ferritin 692.6 ng/mL (24-336)
[2020-02-22 19:20] LABS: Folate 7.76 ng/mL (>3.99)
[2020-02-22] MEDS ORDERED: Vancomycin 1000 MG in NS 0.9% 250 ML IVPB SCH (22:00)
[2020-02-22] MEDS ORDERED: Potassium Chlor 10 meq TAB PO ONE (22:10)
[2020-02-22] MEDS ORDERED: Magnesium Sulfate 2 gm BAG 2 GM/50 ML BAG IVPB ONE (22:10)
[2020-02-22] MEDS ORDERED: Ondansetron 4 mg VIAL 2 MG/ML 2 ml VIAL IV PRN (22:37)
[2020-02-22] MEDS: NS 0.9% 1000 ml BAG 1,000 ML IV SCH (23:15)
[2020-02-22] MEDS: KCL 20 MEQ/100 ML IVPREMIX 20 MEQ/100 ML BAG IV SCH (23:42)
[2020-02-23] MEDS: KCL 20 MEQ/100 ML IVPREMIX 20 MEQ/100 ML BAG IV SCH (02:20)
[2020-02-23 02:53] LABS: Potassium 2.8 mmol/L (3.5-5.0)
[2020-02-23] MEDS ORDERED: Vancomycin 1000 MG in NS 0.9% 250 ML IVPB SCH (03:00)
[2020-02-23 07:19] LABS: Hematocrit 31 % (42-52); Mean Corpuscular HGB Conc 32 g/dL (31-36); Mean Corpuscular Hemoglobin 24 pg (27-31); Mean Corpuscular Volume 75 fL (80-94); Mean Platelet Volume 8.6 fL (7.4-10.4); Platelet Count 287 10^3/uL (150-450); Red Blood Count 4.11 10^6 /uL (4.18-5.48); Red Cell Distribution Width 18 % (10-15); White Blood Count 22.5 10^3/uL (3.5-10.8)
[2020-02-23 07:24] LABS: ABS Basophils 0.2 10^3/ul (0-0.2); ABS Lymphocytes 1.2 10^3/ul (1.0-4.8); ABS Monocytes 1.8 10^3/ul (0-0.8); ABS Neutrophils 19.3 10^3/ul (1.5-7.7); Eosinophil % 0.1 %; Lymphocyte % 5.2 %; Nucleated Red Blood Cells % 0.2
[2020-02-23 07:27] LABS: Albumin 2.4 g/dL (3.2-5.2); Calcium 8.2 mg/dL (8.6-10.3); Total Bilirubin 0.9 mg/dL (0.2-1.0)
[2020-02-23 07:33] LABS: Albumin/Globulin Ratio 0.6 (1-3); BUN/Creatinine Ratio 16.1 (8-20); EGFR African American 86.7 (>60); EGFR Non-African American 71.6 (>60); Globulin 4.2 g/dL (2-4); Total Protein 6.6 g/dL (6.4-8.9)
[2020-02-23] MEDS ORDERED: Nicotine GUM 4MG FRUIT FLAVOR PO PRN (09:40)
[2020-02-23] MEDS: Vancomycin 1000 MG in NS 0.9% 250 ML IVPB SCH ×2 (09:41→14:05)
[2020-02-23 13:32] VITALS: BP 132/77
[2020-02-23] MEDS: NS 0.9% 1000 ml BAG 1,000 ML IV SCH (14:05)
[2020-02-23] MEDS ORDERED: cefTRIAXone 1 gm/50 mL NS BAG 1 GM/50 ML BAG IVPB SCH (15:00)
[2020-02-24] MEDS ORDERED: Vancomycin Trough Check NOTE FOLLOW UP ONE (07:30)
== END 2020-02-23 14:55 | disposition left against medical advice (07) | DRG 720 ==
LOC: MED 12:57 → ED 12:57 → MED 20:28
PROVIDERS: ADMIT Internal Medicine; ATTEND Internal Medicine

== ENCOUNTER 2020-02-24 15:33 | Inpatient (IN) ==
[2020-02-24] MEDS ORDERED: NS 0.9% 1000 ml BAG 1,000 ML IV ONE ×2 (16:01→16:39)
[2020-02-24] MEDS ORDERED: Vancomycin 1,500 MG in NS 0.9% 250 ml 250 ML IVPB ONE (16:02)
[2020-02-24 17:04] LABS: ABS Basophils 0.2 10^3/ul (0-0.2); ABS Eosinophils 0.1 10^3/ul (0-0.6); ABS Lymphocytes 1.5 10^3/ul (1.0-4.8); ABS Monocytes 2.1 10^3/ul (0-0.8); ABS Neutrophils 22.9 10^3/ul (1.5-7.7); Eosinophil % 0.2 %; Hematocrit 32 % (42-52); Hemoglobin 10.5 g/dL (14.0-18.0); Lymphocyte % 5.6 %; Mean Corpuscular HGB Conc 33 g/dL (31-36); Mean Corpuscular Hemoglobin 25 pg (27-31); Mean Corpuscular Volume 74 fL (80-94); Nucleated Red Blood Cells % 0.1; Red Blood Count 4.29 10^6 /uL (4.18-5.48); Red Cell Distribution Width 18 % (10-15); White Blood Count 26.8 10^3/uL (3.5-10.8)
[2020-02-24 17:14] LABS: Albumin 2.7 g/dL (3.2-5.2); Calcium 8.7 mg/dL (8.6-10.3); Magnesium 1.5 mg/dL (1.9-2.7); Total Bilirubin 0.8 mg/dL (0.2-1.0)
[2020-02-24] MEDS ORDERED: Magnesium Sulfate 2 gm BAG 2 GM/50 ML BAG IVPB ONE (17:18)
[2020-02-24 17:20] LABS: Albumin/Globulin Ratio 0.6 (1-3); C Reactive Protein 197.7 mg/L (<8.01); EGFR African American 91.8 (>60); EGFR Non-African American 75.8 (>60); Globulin 4.6 g/dL (2-4); Total Protein 7.3 g/dL (6.4-8.9)
[2020-02-24 17:25] LABS: Platelet Count Platelets clumped. 10^3/uL (150-450)
[2020-02-24] MEDS ORDERED: fentaNYL 100 mcg/2 ml 50 MCG/ML VIAL IV SLOW PU ONE (18:47)
[2020-02-24 18:51] LABS: Potassium 3.1 mmol/L (3.5-5.0)
[2020-02-24] MEDS ORDERED: Ondansetron 4 mg VIAL 2 MG/ML 2 ml VIAL IV PRN (19:17)
[2020-02-24] MEDS ORDERED: Vancomycin per Pharmacy 1 EA NOTE FOLLOW UP PRN (19:32)
[2020-02-24 19:42] LABS: Urine Appearance Cloudy; Urine Bilirubin Negative (Negative); Urine Blood 1+ (Negative); Urine Color Yellow; Urine Glucose Negative (Negative); Urine Ketones Negative (Negative); Urine Nitrite Negative (Negative); Urine Protein 1+(30 mg/dL) (Negative); Urine Urobilinogen Negative (Negative)
[2020-02-24 19:45] LABS: Urine Bacteria 1+ (Absent); Urine Red Blood Cell 3+(>10/hpf) (Absent); Urine White Blood Cell 3+(>20/hpf) (Absent)
[2020-02-24] MEDS: KCL 20 MEQ/100 ML IVPREMIX 20 MEQ/100 ML BAG IV SCH (19:48)
[2020-02-24] MEDS: fentaNYL 100 mcg/2 ml 50 MCG/ML VIAL IV SLOW PU PRN (21:40)
[2020-02-24] MEDS: NS 0.9% w/ 20 Meq KCL 1000 ml 1,000 ML IV SCH (22:11)
[2020-02-24] MEDS: cefTRIAXone 1 gm/50 mL NS BAG 1 GM/50 ML BAG IVPB SCH (22:12)
[2020-02-25] MEDS: Vancomycin 1000 MG in NS 0.9% 250 ML IVPB SCH ×4 (00:52→18:06)
[2020-02-25] MEDS: fentaNYL 100 mcg/2 ml 50 MCG/ML VIAL IV SLOW PU PRN ×7 (02:00→22:41)
[2020-02-25] MEDS ORDERED: KCL 20 MEQ/100 ML IVPREMIX 20 MEQ/100 ML BAG ONE (03:45)
[2020-02-25] MEDS: KCL 20 MEQ/100 ML IVPREMIX 20 MEQ/100 ML BAG IV SCH (03:49)
[2020-02-25] MEDS ORDERED: Vancomycin 1,000 MG in NS 0.9% 250 ml 250 ML IVPB SCH (06:00)
[2020-02-25 06:18] LABS: Hematocrit 29 % (42-52); Hemoglobin 9.6 g/dL (14.0-18.0); Mean Corpuscular HGB Conc 33 g/dL (31-36); Mean Corpuscular Hemoglobin 24 pg (27-31); Mean Corpuscular Volume 74 fL (80-94); Platelet Count 421 10^3/uL (150-450); Red Blood Count 3.92 10^6 /uL (4.18-5.48); Red Cell Distribution Width 18 % (10-15); White Blood Count 23.3 10^3/uL (3.5-10.8)
[2020-02-25 06:37] LABS: Albumin 2.1 g/dL (3.2-5.2); Albumin/Globulin Ratio 0.5 (1-3); BUN/Creatinine Ratio 10.3 (8-20); Calcium 7.9 mg/dL (8.6-10.3); EGFR African American 93.6 (>60); EGFR Non-African American 77.4 (>60); Globulin 4.2 g/dL (2-4); Magnesium 1.8 mg/dL (1.9-2.7); Potassium 3.1 mmol/L (3.5-5.0); Total Bilirubin 0.7 mg/dL (0.2-1.0); Total Protein 6.3 g/dL (6.4-8.9)
[2020-02-25 07:04] LABS: ABS Basophils 0.2 10^3/ul (0-0.2); ABS Eosinophils 0.2 10^3/ul (0-0.6); ABS Lymphocytes 2.2 10^3/ul (1.0-4.8); ABS Monocytes 2.5 10^3/ul (0-0.8); ABS Neutrophils 18.3 10^3/ul (1.5-7.7); Eosinophil % 0.9 %; Lymphocyte % 9.3 %
[2020-02-25 08:47] LABS: Erythrocyte Sed Rate 85 mm/Hr (0-14)
[2020-02-25] MEDS: Potassium Chlor 20 meq TAB.ER PO SCH ×2 (09:01→19:15)
[2020-02-25] MEDS ORDERED: Vancomycin Trough Check NOTE FOLLOW UP ONE (10:30)
[2020-02-25] MEDS: NS 0.9% w/ 20 Meq KCL 1000 ml 1,000 ML IV SCH (12:13)
[2020-02-25] MEDS: Enoxaparin 40 MG/0.4 ML SYR SUBCUT SCH (17:05)
[2020-02-25] MEDS: cefTRIAXone 1 gm/50 mL NS BAG 1 GM/50 ML BAG IVPB SCH (22:41)
[2020-02-26] MEDS: Vancomycin 1000 MG in NS 0.9% 250 ML IVPB SCH ×4 (00:18→20:54)
[2020-02-26] MEDS: NS 0.9% w/ 20 Meq KCL 1000 ml 1,000 ML IV SCH ×3 (00:19→18:07)
[2020-02-26] MEDS: fentaNYL 100 mcg/2 ml 50 MCG/ML VIAL IV SLOW PU PRN ×2 (04:11→12:45)
[2020-02-26] MEDS: Potassium Chlor 20 meq TAB.ER PO SCH ×2 (08:10→21:00)
[2020-02-26 08:14] LABS: Hematocrit 28 % (42-52); Hemoglobin 9.1 g/dL (14.0-18.0); Mean Corpuscular HGB Conc 33 g/dL (31-36); Mean Corpuscular Hemoglobin 24 pg (27-31); Mean Corpuscular Volume 74 fL (80-94); Mean Platelet Volume 7.4 fL (7.4-10.4); Platelet Count 489 10^3/uL (150-450); Red Blood Count 3.73 10^6 /uL (4.18-5.48); Red Cell Distribution Width 18 % (10-15); White Blood Count 22.4 10^3/uL (3.5-10.8)
[2020-02-26 08:28] LABS: BUN/Creatinine Ratio 7.8 (8-20); Calcium 7.7 mg/dL (8.6-10.3); EGFR African American 94.5 (>60); EGFR Non-African American 78.1 (>60); Magnesium 1.3 mg/dL (1.9-2.7)
[2020-02-26] MEDS ORDERED: Potassium Chlor 20 meq TAB.ER PO ONE (08:31)
[2020-02-26] MEDS: KCL 20 MEQ/100 ML IVPREMIX 20 MEQ/100 ML BAG IV SCH ×2 (09:58→13:57)
[2020-02-26] MEDS: Magnesium Sulfate 2 gm BAG 2 GM/50 ML BAG IVPB SCH ×2 (09:59→12:34)
[2020-02-26] MEDS ORDERED: Vancomycin Trough Check NOTE FOLLOW UP ONE (10:30)
[2020-02-26 11:01] LABS: Microcytosis 2+
[2020-02-26 11:02] LABS: ABS Basophils 0.1 10^3/ul (0-0.2); ABS Eosinophils 0.3 10^3/ul (0-0.6); ABS Lymphocytes 2.2 10^3/ul (1.0-4.8); ABS Neutrophils 17.8 10^3/ul (1.5-7.7); Eosinophil % 1.3 %
[2020-02-26 11:58] LABS: Vancomycin Random 44.4 mcg/mL
[2020-02-26] MEDS ORDERED: Nicotine Lozenge mini 2 MG LOZNG.MINI MT PRN (12:46)
[2020-02-26 15:04] LABS: Urine Benzodiazepine Screen None Detected (None Detect); Urine Cannabinoids Screen None Detected (None Detect); Urine Opiates Screen None Detected (None Detect)
[2020-02-26] MEDS: Enoxaparin 40 MG/0.4 ML SYR SUBCUT SCH (16:25)
[2020-02-26] MEDS ORDERED: Vancomycin Random Level NOTE FOLLOW UP ONE (18:00)
[2020-02-27] MEDS: NS 0.9% w/ 20 Meq KCL 1000 ml 1,000 ML IV SCH ×3 (02:36→22:30)
[2020-02-27] MEDS: Vancomycin 1000 MG in NS 0.9% 250 ML IVPB SCH ×5 (06:23→22:25)
[2020-02-27] MEDS: Potassium Chlor 20 meq TAB.ER PO SCH ×2 (08:02→22:21)
[2020-02-27] MEDS: Nicotine PATCH 21 MG/24 HR PATCH TRANSDERM SCH (08:05)
[2020-02-27] MEDS ORDERED: LORazepam 2 mg VIAL 1 ml IV PUSH ONE (10:49)
[2020-02-27] MEDS ORDERED: Lorazepam PYXIS KEY PRN (10:49)
[2020-02-27] MEDS: Enoxaparin 40 MG/0.4 ML SYR SUBCUT SCH (17:28)
[2020-02-27] MEDS ORDERED: Vancomycin Trough Check NOTE FOLLOW UP ONE (20:00)
[2020-02-28] MEDS: Vancomycin 1000 MG in NS 0.9% 250 ML IVPB SCH ×3 (05:56→23:12)
[2020-02-28] MEDS: Potassium Chlor 20 meq TAB.ER PO SCH ×2 (09:00→20:05)
[2020-02-28] MEDS: Nicotine PATCH 21 MG/24 HR PATCH TRANSDERM SCH (09:01)
[2020-02-28 09:09] LABS: BUN/Creatinine Ratio 9.6 (8-20); Calcium 7.8 mg/dL (8.6-10.3); EGFR African American 119.3 (>60); EGFR Non-African American 98.6 (>60); Magnesium 1.2 mg/dL (1.9-2.7); Potassium 3.9 mmol/L (3.5-5.0)
[2020-02-28 09:26] LABS: ABS Basophils 0.1 10^3/ul (0-0.2); ABS Eosinophils 0.4 10^3/ul (0-0.6); ABS Lymphocytes 2.4 10^3/ul (1.0-4.8); ABS Monocytes 1.4 10^3/ul (0-0.8); Hematocrit 26 % (42-52); Hemoglobin 8.9 g/dL (14.0-18.0); Lymphocyte % 13.2 %; Mean Corpuscular HGB Conc 34 g/dL (31-36); Mean Corpuscular Hemoglobin 25 pg (27-31); Mean Corpuscular Volume 74 fL (80-94); Mean Platelet Volume 7.3 fL (7.4-10.4); Platelet Count 523 10^3/uL (150-450); Red Blood Count 3.57 10^6 /uL (4.18-5.48); Red Cell Distribution Width 18 % (10-15); White Blood Count 18.2 10^3/uL (3.5-10.8)
[2020-02-28] MEDS ORDERED: Magnesium Sulf 4 GM/100 ML IV 4,000 MG/100 ML BAG IVPB ONE (10:36)
[2020-02-28] MEDS ORDERED: LORazepam 2 mg VIAL 1 ml IV PUSH ONE (11:01)
[2020-02-28] MEDS: NS 0.9% w/ 20 Meq KCL 1000 ml 1,000 ML IV SCH (11:50)
[2020-02-28] MEDS ORDERED: Vancomycin Trough Check NOTE FOLLOW UP ONE (13:30)
[2020-02-28 16:43] LABS: Vancomycin Trough 16.7 mcg/mL
[2020-02-28 16:46] LABS: EGFR African American 125.4 (>60); EGFR Non-African American 103.7 (>60)
[2020-02-28] MEDS: Enoxaparin 40 MG/0.4 ML SYR SUBCUT SCH (17:13)
[2020-02-29] MEDS: Vancomycin 1000 MG in NS 0.9% 250 ML IVPB SCH ×3 (05:41→23:31)
[2020-02-29] MEDS: Nicotine PATCH 21 MG/24 HR PATCH TRANSDERM SCH (08:53)
[2020-02-29] MEDS: Potassium Chlor 20 meq TAB.ER PO SCH ×2 (08:56→19:56)
[2020-02-29] MEDS: LORazepam 2 mg VIAL 1 ml IV PUSH PRN ×2 (09:06→15:03)
[2020-02-29 16:08] LABS: CO2 Carbon Dioxide 17 mmol/L (22-32); Chloride 105 mmol/L (101-111); Sodium 130 mmol/L (135-145)
[2020-02-29 16:14] LABS: BUN/Creatinine Ratio 11.3 (8-20); Blood Urea Nitrogen 11 mg/dL (6-24); EGFR African American 115.1 (>60); EGFR Non-African American 95.1 (>60); Glucose 87 mg/dL (70-100)
[2020-02-29 16:16] LABS: Anion Gap 8 mmol/L (2-11)
[2020-02-29] MEDS: Enoxaparin 40 MG/0.4 ML SYR SUBCUT SCH (16:20)
[2020-02-29] MEDS ORDERED: Nicotine PATCH 21 MG/24 HR PATCH TRANSDERM ONE (20:41)
[2020-03-01] MEDS: Vancomycin 1000 MG in NS 0.9% 250 ML IVPB SCH ×3 (06:55→23:30)
[2020-03-01 09:23] LABS: Hematocrit 28 % (42-52); Hemoglobin 9.2 g/dL (14.0-18.0); Mean Corpuscular HGB Conc 34 g/dL (31-36); Mean Corpuscular Hemoglobin 25 pg (27-31); Mean Corpuscular Volume 73 fL (80-94); Mean Platelet Volume 7.1 fL (7.4-10.4); Platelet Count 588 10^3/uL (150-450); Red Blood Count 3.77 10^6 /uL (4.18-5.48); Red Cell Distribution Width 18 % (10-15); White Blood Count 17.9 10^3/uL (3.5-10.8)
[2020-03-01 09:38] LABS: BUN/Creatinine Ratio 10.9 (8-20); C Reactive Protein 77.72 mg/L (<8.01); Calcium 8.6 mg/dL (8.6-10.3); EGFR African American 99.5 (>60); EGFR Non-African American 82.2 (>60); Magnesium 1.5 mg/dL (1.9-2.7); Potassium 4.8 mmol/L (3.5-5.0)
[2020-03-01] MEDS: Potassium Chlor 20 meq TAB.ER PO SCH ×2 (09:42→19:49)
[2020-03-01] MEDS: Nicotine PATCH 21 MG/24 HR PATCH TRANSDERM SCH (09:50)
[2020-03-01 10:32] LABS: ABS Eosinophils 0.3 10^3/ul (0-0.6); ABS Lymphocytes 1.9 10^3/ul (1.0-4.8); ABS Monocytes 1.3 10^3/ul (0-0.8); ABS Neutrophils 14.4 10^3/ul (1.5-7.7); Eosinophil % 1.9 %; Lymphocyte % 10.6 %
[2020-03-01 10:45] LABS: Microcytosis 2+
[2020-03-01] MEDS ORDERED: Magnesium Sulfate 2 gm BAG 2 GM/50 ML BAG IVPB ONE (12:50)
[2020-03-01] MEDS ORDERED: Vancomycin Trough Check NOTE FOLLOW UP ONE (13:30)
[2020-03-01] MEDS: Enoxaparin 40 MG/0.4 ML SYR SUBCUT SCH (15:51)
[2020-03-02 06:33] LABS: BUN/Creatinine Ratio 11.4 (8-20); Calcium 8.8 mg/dL (8.6-10.3); EGFR African American 95.5 (>60); EGFR Non-African American 78.9 (>60); Magnesium 1.9 mg/dL (1.9-2.7); Potassium 4.7 mmol/L (3.5-5.0)
[2020-03-02] MEDS: Potassium Chlor 20 meq TAB.ER PO SCH ×2 (08:02→22:07)
[2020-03-02] MEDS: Nicotine PATCH 21 MG/24 HR PATCH TRANSDERM SCH (08:12)
[2020-03-02] MEDS: Vancomycin 1000 MG in NS 0.9% 250 ML IVPB SCH ×2 (10:50→22:07)
[2020-03-02] MEDS ORDERED: Albuterol HFA INHALER 8 gm MDI INH PRN (14:47)
[2020-03-02] MEDS: Enoxaparin 40 MG/0.4 ML SYR SUBCUT SCH (18:33)
[2020-03-03] MEDS: Nicotine PATCH 21 MG/24 HR PATCH TRANSDERM SCH (08:04)
[2020-03-03] MEDS: Potassium Chlor 20 meq TAB.ER PO SCH ×2 (08:05→20:52)
[2020-03-03] MEDS ORDERED: Vancomycin Trough Check NOTE FOLLOW UP ONE (09:30)
[2020-03-03] MEDS: Albuterol 2.5mg/3 ml (0.083%) NEB.SOLN INH PRN ×2 (10:20→20:52)
[2020-03-03 14:17] LABS: Hematocrit 29 % (42-52); Hemoglobin 9.7 g/dL (14.0-18.0); Mean Corpuscular HGB Conc 33 g/dL (31-36); Mean Corpuscular Hemoglobin 25 pg (27-31); Mean Corpuscular Volume 75 fL (80-94); Red Blood Count 3.92 10^6 /uL (4.18-5.48); Red Cell Distribution Width 18 % (10-15)
[2020-03-03 14:23] LABS: BUN/Creatinine Ratio 15.8 (8-20); Calcium 9.3 mg/dL (8.6-10.3); EGFR Non-African American 74.4 (>60); Magnesium 1.7 mg/dL (1.9-2.7); Potassium 4.9 mmol/L (3.5-5.0)
[2020-03-03 14:51] LABS: Microcytosis 1+
[2020-03-03 14:56] LABS: ABS Eosinophils 0.5 10^3/ul (0-0.6); ABS Neutrophils 12.9 10^3/ul (1.5-7.7); White Blood Count 16.5 10^3/uL (3.5-10.8)
[2020-03-03 14:57] LABS: Mean Platelet Volume 7.3 fL (7.4-10.4); Platelet Count 550 10^3/uL (150-450)
[2020-03-03] MEDS: Vancomycin 1000 MG in NS 0.9% 250 ML IVPB SCH ×2 (14:59→20:52)
[2020-03-03] MEDS: Enoxaparin 40 MG/0.4 ML SYR SUBCUT SCH (18:34)
[2020-03-04] MEDS: Nicotine PATCH 21 MG/24 HR PATCH TRANSDERM SCH ×2 (08:40→08:45)
[2020-03-04] MEDS: Potassium Chlor 20 meq TAB.ER PO SCH (08:41)
[2020-03-04 09:46] LABS: ABS Basophils 0.1 10^3/ul (0-0.2); ABS Eosinophils 0.2 10^3/ul (0-0.6); ABS Lymphocytes 2.2 10^3/ul (1.0-4.8); ABS Monocytes 1.4 10^3/ul (0-0.8); ABS Neutrophils 10.1 10^3/ul (1.5-7.7); Eosinophil % 1.5 %; Hematocrit 28 % (42-52); Hemoglobin 9.5 g/dL (14.0-18.0); Lymphocyte % 15.7 %; Mean Corpuscular HGB Conc 33 g/dL (31-36); Mean Corpuscular Hemoglobin 25 pg (27-31); Mean Corpuscular Volume 74 fL (80-94); Platelet Count 635 10^3/uL (150-450); Red Blood Count 3.85 10^6 /uL (4.18-5.48); Red Cell Distribution Width 17 % (10-15); White Blood Count 13.9 10^3/uL (3.5-10.8)
[2020-03-04] MEDS: Albuterol 2.5mg/3 ml (0.083%) NEB.SOLN INH PRN (09:47)
[2020-03-04] MEDS: Vancomycin 1000 MG in NS 0.9% 250 ML IVPB SCH (09:50)
[2020-03-04 10:05] LABS: Albumin 2.9 g/dL (3.2-5.2); Albumin/Globulin Ratio 0.5 (1-3); BUN/Creatinine Ratio 15.1 (8-20); Calcium 9.2 mg/dL (8.6-10.3); EGFR African American 85.1 (>60); EGFR Non-African American 70.3 (>60); Globulin 6.3 g/dL (2-4); Magnesium 1.9 mg/dL (1.9-2.7); Total Bilirubin 0.5 mg/dL (0.2-1.0); Total Protein 9.2 g/dL (6.4-8.9)
[2020-03-04 10:08] LABS: Potassium 5.1 mmol/L (3.5-5.0)
[2020-03-04] MEDS ORDERED: NS 0.9% 1000 ml BAG 1,000 ML IV SCH (11:30)
[2020-03-04] MEDS: Enoxaparin 40 MG/0.4 ML SYR SUBCUT SCH (15:40)
[2020-03-04] MEDS ORDERED: Buprenorp/Nalox 8-2 MG FILM SL FILM SCH (21:00)
[2020-03-04] MEDS: Linezolid 600 MG IVPREMIX(*) 600 MG/300 ML BAG IVPB SCH (22:42)
[2020-03-05] MEDS: Linezolid 600 MG IVPREMIX(*) 600 MG/300 ML BAG IVPB SCH ×2 (07:54→21:39)
[2020-03-05] MEDS: Nicotine PATCH 21 MG/24 HR PATCH TRANSDERM SCH (07:58)
[2020-03-05 11:03] LABS: ABS Basophils 0.2 10^3/ul (0-0.2); ABS Eosinophils 0.2 10^3/ul (0-0.6); ABS Lymphocytes 1.6 10^3/ul (1.0-4.8); ABS Monocytes 1.3 10^3/ul (0-0.8); ABS Neutrophils 10.2 10^3/ul (1.5-7.7); Eosinophil % 1.7 %; Hematocrit 28 % (42-52); Hemoglobin 9.1 g/dL (14.0-18.0); Lymphocyte % 12.2 %; Mean Corpuscular HGB Conc 33 g/dL (31-36); Mean Corpuscular Hemoglobin 25 pg (27-31); Mean Corpuscular Volume 74 fL (80-94); Mean Platelet Volume 6.7 fL (7.4-10.4); Platelet Count 578 10^3/uL (150-450); Red Blood Count 3.71 10^6 /uL (4.18-5.48); Red Cell Distribution Width 18 % (10-15); White Blood Count 13.5 10^3/uL (3.5-10.8)
[2020-03-05 11:20] LABS: Albumin 2.9 g/dL (3.2-5.2); Albumin/Globulin Ratio 0.5 (1-3); BUN/Creatinine Ratio 18.1 (8-20); Calcium 9.3 mg/dL (8.6-10.3); EGFR African American 84.3 (>60); EGFR Non-African American 69.7 (>60); Potassium 4.7 mmol/L (3.5-5.0); Total Bilirubin 0.5 mg/dL (0.2-1.0); Total Protein 8.9 g/dL (6.4-8.9)
[2020-03-05] MEDS: Enoxaparin 40 MG/0.4 ML SYR SUBCUT SCH (17:25)
[2020-03-06 07:32] LABS: Albumin/Globulin Ratio 0.5 (1-3); BUN/Creatinine Ratio 19.8 (8-20); Calcium 9.5 mg/dL (8.6-10.3); EGFR African American 89.1 (>60); EGFR Non-African American 73.7 (>60); Globulin 6.2 g/dL (2-4); Potassium 4.5 mmol/L (3.5-5.0); Total Bilirubin 0.5 mg/dL (0.2-1.0); Total Protein 9.2 g/dL (6.4-8.9)
[2020-03-06] MEDS ORDERED: NS 0.9% 1000 ml BAG 1,000 ML IV SCH (09:00)
[2020-03-06] MEDS: Nicotine PATCH 21 MG/24 HR PATCH TRANSDERM SCH (10:03)
[2020-03-06 10:10] LABS: C Reactive Protein 44.66 mg/L (<8.01)
[2020-03-06 14:50] VITALS: BP 116/67
== END 2020-03-06 12:05 | disposition left against medical advice (07) | DRG 720 ==
LOC: ED 15:33 → MED 19:54 → MEDTELE 03-04 21:43
PROVIDERS: ADMIT Internal Medicine; ATTEND Student in an Organized Health Care Education/Training Program